=== PATIENT | female | born 1975 | race African-American/Black ===

== ENCOUNTER 2023-02-18 16:31 | Inpatient (IN) | payer MEDICAID ==
[~2023-02-18] VITALS: Ht 172.7 cm; Wt 76.2 kg
[~2023-02-18 16:31] MED LIST: GLIP5TAB22 MT; METF-414 PO
[2023-02-18] MEDS ORDERED: ONDANSETRON 4MG ODT PO ONE (17:00)
[2023-02-18 18:21] LABS: BASOPHILS % 0.2 % (0.0-2.0); EOSINOPHILS % 1.2 % (0.0-5.0); HEMATOCRIT. 36.2 % (36.0-48.0); LYMPHOCYTES % 22.8 % (20.0-50.0); MEAN CORPUSCULAR HEMOGLOBIN 31.7 pg (28.0-32.0); MEAN CORPUSCULAR VOLUME 96.1 fL (81.0-99.0); MEAN PLATELET VOLUME 9.5 fl (7.4-10.4); NEUTROPHILS % 62.8 % (40.0-76.0); PLATELET 157 x1000/uL (130-400); RED BLOOD CELL COUNT 3.77 mill/uL (4.2-5.4); RED CELL DISTRIBUTION WIDTH 14.3 % (11.6-14.6); WHITE BLOOD COUNT 3.5 x1000/uL (4.5-11.0)
[2023-02-18 18:36] LABS: ALANINE AMINOTRANSFERASE < 7 IU/L (10-49); ALBUMIN 3.6 g/dL (3.2-4.8); ASPARTATE AMINOTRANSFERASE 10 IU/L (<34); BILIRUBIN TOTAL 0.4 mg/dL (0.1-1.0); CARBON DIOXIDE 28 mEq/L (21-32); CHLORIDE 106 mEq/L (98-107); GLUCOSE 131 mg/dL (70-105); PHOSPHORUS 4.2 mg/dL (2.5-4.9); POTASSIUM 4.8 mEq/L (3.5-5.1); PROTEIN TOTAL 6.2 g/dL (6.0-8.3); SODIUM 140 mEq/L (136-145); UREA NITROGEN BLOOD 28 mg/dL (9-23)
[2023-02-18 19:25] LABS: CREATININE 5.4 mg/dL (0.6-1.0)
[2023-02-18 20:41] LABS: PROTHROMBIN TIME 10.7 sec (9.6-11.0)
[2023-02-18] MEDS ORDERED: IPRATROPIUM/ALBUTEROL 0.5-3(2.5)MG/3ML NEB HHN PRN (21:00)
[2023-02-18] MEDS ORDERED: GUAIFENESIN 200MG/10ML SUGAR FREE UDC PO PRN (21:00)
[2023-02-18] MEDS ORDERED: NA PHOS,M-B/NA PHOS,DI-BA ENEMA 118ML PR PRN (21:00)
[2023-02-18] MEDS ORDERED: ONDANSETRON HCL 4MG/2ML INJ IV PRN (21:00)
[2023-02-18] MEDS ORDERED: DEXTROSE 50% WATER 50ML SYRINGE IV PRN (21:00)
[2023-02-18] MEDS: INSULIN LISPRO 100 UNITS/ML SUBCUT SCH ×2 (21:00→23:49)
[2023-02-18] MEDS ORDERED: MAGNESIUM/ALUMINUM HYDROXIDE/SIMETHICONE 30ML UDC PO PRN (21:00)
[2023-02-18] MEDS ORDERED: CLONIDINE 0.1MG TABLET PO PRN (21:00)
[2023-02-18] MEDS ORDERED: DOCUSATE SODIUM 100MG CAPSULE PO PRN (21:00)
[2023-02-18] MEDS: BLOOD SUGAR DIAGNOSTIC STRIP TEST SCH (22:30)
[2023-02-18 23:00] VITALS: BP 184/89; PULSE 80; RESP 18; TEMP 96.9
[2023-02-18] MEDS ORDERED: AMLODIPINE 5MG TABLET PO NR (23:45)
[2023-02-19] VITALS (24 sets, daily range): BP systolic 101–171; BP diastolic 52–96; PULSE 68–87; RESP 13–19; TEMP 96.1–98.6
[2023-02-19] MEDS ORDERED: CALCIUM ACETATE 667MG CAPSULE PO ONE (00:15)
[2023-02-19 00:31] LABS: CREATINE KINASE 106 IU/L (34-145)
[2023-02-19 01:08] LABS: TROPONIN I HIGH SENSITIVITY 64 ng/L (3.0-34)
[2023-02-19 01:58] LABS: HCG SCREEN NEGATIVE
[2023-02-19] MEDS: HYDRALAZINE HCL 100MG TABLET PO SCH ×3 (06:06→22:00)
[2023-02-19] MEDS: BLOOD SUGAR DIAGNOSTIC STRIP TEST SCH ×4 (06:10→21:00)
[2023-02-19] MEDS: INSULIN LISPRO 100 UNITS/ML SUBCUT SCH ×4 (06:10→21:00)
[2023-02-19 07:10] LABS: HEMATOCRIT. 31.9 % (36.0-48.0); HEMOGLOBIN. 10.9 g/dL (12.0-16.0); MEAN CORPUSCULAR HEMOGLOBIN 32.4 pg (28.0-32.0); MEAN CORPUSCULAR HGB CONC 34.2 g/dL (31.0-37.0); MEAN CORPUSCULAR VOLUME 94.5 fL (81.0-99.0); MEAN PLATELET VOLUME 9.9 fl (7.4-10.4); PLATELET 142 x1000/uL (130-400); RED BLOOD CELL COUNT 3.37 mill/uL (4.2-5.4); RED CELL DISTRIBUTION WIDTH 14.1 % (11.6-14.6); WHITE BLOOD COUNT 2.8 x1000/uL (4.5-11.0)
[2023-02-19] MEDS ORDERED: CLOP75TA33 PO (07:18)
[2023-02-19] MEDS ORDERED: ASPI-1406 PO (07:18)
[2023-02-19] MEDS ORDERED: DOCU250C14 PO (07:18)
[2023-02-19] MEDS ORDERED: AMLO5TAB88 PO (07:18)
[2023-02-19] MEDS ORDERED: FAMO20TA8 PO (07:18)
[2023-02-19] MEDS ORDERED: CALC667C PO (07:18)
[2023-02-19] MEDS ORDERED: HYDR100T31 PO (07:18)
[2023-02-19 07:22] LABS: DIFFERENTIAL COMMENT 1
[2023-02-19 07:43] LABS: CREATINE KINASE 92 IU/L (34-145)
[2023-02-19 07:44] LABS: ALANINE AMINOTRANSFERASE < 7 IU/L (10-49); ALBUMIN 3.1 g/dL (3.2-4.8); ASPARTATE AMINOTRANSFERASE 10 IU/L (<34); BILIRUBIN TOTAL 0.3 mg/dL (0.1-1.0); CALCIUM 8.3 mg/dL (8.7-10.4); CARBON DIOXIDE 27 mEq/L (21-32); CHLORIDE 106 mEq/L (98-107); CHOLESTEROL 195 mg/dL (<200); GLUCOSE 124 mg/dL (70-105); HDL CHOLESTEROL 57 mg/dL (>65); LDL CHOLESTEROL 121 mg/dL (5-100); POTASSIUM 5.3 mEq/L (3.5-5.1); PROTEIN TOTAL 5.4 g/dL (6.0-8.3); SODIUM 141 mEq/L (136-145); T4 FREE 1.02 ng/dL (0.89-1.76); THYROID STIMULATING HORMONE < 0.10 uIU/mL (0.55-4.78); TRIGLYCERIDE 76 mg/dL (0-150); UREA NITROGEN BLOOD 38 mg/dL (9-23)
[2023-02-19 08:21] LABS: CREATININE 5.6 mg/dL (0.6-1.0)
[2023-02-19 08:40] LABS: TROPONIN I HIGH SENSITIVITY 67 ng/L (3.0-34)
[2023-02-19] MEDS: ONDANSETRON HCL 4MG/2ML INJ IV SCH (09:00)
[2023-02-19] MEDS: ASPIRIN 81MG TABLET PO SCH (09:00)
[2023-02-19] MEDS: CALCIUM ACETATE 667MG CAPSULE PO SCH ×3 (09:00→17:50)
[2023-02-19] MEDS: CLOPIDOGREL 75MG TABLET PO SCH (09:00)
[2023-02-19] MEDS: AMLODIPINE 5MG TABLET PO SCH (09:01)
[2023-02-19] MEDS ORDERED: LIDOCAINE HCL 1% 10 MG/ML 10ML VIAL ONE ×2 (09:26→09:56)
[2023-02-19] MEDS ORDERED: FENTANYL CITRATE/PF 50MCG/ML 2ML VIAL ONE (09:37)
[2023-02-19] MEDS ORDERED: CEFAZOLIN 1000MG PREMIX 50 ML IV ONE (09:37)
[2023-02-19] MEDS ORDERED: CEFAZOLIN 1000MG PREMIX 50 ML IV NR (10:15)
[2023-02-19] MEDS ORDERED: FENTANYL CITRATE/PF 50MCG/ML 2ML VIAL IV ONE (10:15)
[2023-02-19 12:25] LABS: CLARITY URINE CLEAR (CLEAR); COLOR URINE YELLOW (YELLOW); GLUCOSE URINE TRACE (NEGATIVE); KETONES URINE NEGATIVE (NEGATIVE); LEUKOCYTE ESTERASE URINE 1+ (NEGATIVE); NITRITE URINE NEGATIVE (NEGATIVE); OCCULT BLOOD URINE NEGATIVE (NEGATIVE); PROTEIN URINE 4+ (NEGATIVE); SPECIFIC GRAVITY URINE 1.013 (1.005-1.030)
[2023-02-19 12:27] LABS: RBC URINE 0-2 /hpf (0-2); SQUAMOUS EPITHELIAL CELL URINE NONE SEEN /lpf (RARE/1+); YEAST URINE NONE SEEN
[2023-02-19 12:40] LABS: HEPATITIS A AB IGM NEGATIVE (Negative); HEPATITIS B CORE AB IGM NEGATIVE (Negative); HEPATITIS B SURFACE ANTIGEN NEGATIVE (Negative); HEPATITIS C AB NON REACTIVE (Neg) (Negative)
[2023-02-19 12:45] LABS: WBC URINE 0-2 /hpf (0-2)
[2023-02-19 12:46] LABS: BACTERIA URINE 2+
[2023-02-19 14:01] LABS: PLATELET ESTIMATE NORMAL
[2023-02-19 14:06] LABS: *AMPHETAMINES SCREEN URINE NEGATIVE (NEGATIVE); *BARBITURATES SCREEN URINE NEGATIVE (NEGATIVE); *BENZODIAZEPINES SCREEN URINE NEGATIVE (NEGATIVE); *COCAINE SCREEN URINE PRESUMPTIVE POSITIVE (NEGATIVE); CANNABINOID URINE SCREEN NEGATIVE (NEGATIVE); ECSTASY MDMA SCREEN URINE NEGATIVE (NEGATIVE); METHADONE URINE SCREEN Neg (NEGATIVE); OPIATES URINE SCREEN NEGATIVE (NEGATIVE); PHENCYCLIDINE URINE SCREEN NEGATIVE (NEGATIVE)
[2023-02-19] MEDS ORDERED: CEFTRIAXONE 1GM PREMIX 50 ML IV SCH (15:45)
[2023-02-19] MEDS ORDERED: CEFTRIAXONE 1,000 MG in DEXTROSE 5% WATER 50 ML IV SCH (17:00)
[2023-02-19] MEDS ORDERED: ACETAMINOPHEN 650MG/20.3ML UDC PO PRN (18:00)
[2023-02-20] VITALS (12 sets, daily range): BP systolic 110–158; BP diastolic 57–86; PULSE 65–76; RESP 16–18; TEMP 97.1–98; O2SAT 100
[2023-02-20] MEDS: HYDRALAZINE HCL 100MG TABLET PO SCH ×2 (06:00→14:38)
[2023-02-20 07:48] LABS: HEMATOCRIT 31.5 % (36.0-48.0); HEMOGLOBIN 10.7 g/dL (12.0-16.0); MEAN CORPUSCULAR HEMOGLOBIN 32.2 pg (28.0-32.0); MEAN CORPUSCULAR HGB CONC 34.1 g/dL (31.0-37.0); MEAN CORPUSCULAR VOLUME 94.4 fL (81.0-99.0); PLATELET 136 x1000/uL (130-400); RED BLOOD CELL COUNT 3.33 mill/uL (4.2-5.4)
[2023-02-20] MEDS: INSULIN LISPRO 100 UNITS/ML SUBCUT SCH ×2 (07:50→12:07)
[2023-02-20] MEDS: BLOOD SUGAR DIAGNOSTIC STRIP TEST SCH ×2 (08:01→11:59)
[2023-02-20 08:16] LABS: CALCIUM 8.3 mg/dL (8.7-10.4); CREATININE 4.7 mg/dL (0.6-1.0); POTASSIUM 5.2 mEq/L (3.5-5.1)
[2023-02-20] MEDS: CALCIUM ACETATE 667MG CAPSULE PO SCH ×2 (09:32→12:08)
[2023-02-20] MEDS: ONDANSETRON HCL 4MG/2ML INJ IV SCH (09:32)
[2023-02-20] MEDS: ASPIRIN 81MG TABLET PO SCH (09:32)
[2023-02-20] MEDS: AMLODIPINE 5MG TABLET PO SCH (09:33)
[2023-02-20] MEDS: CLOPIDOGREL 75MG TABLET PO SCH (09:33)
== END 2023-02-20 15:15 | disposition home or self-care (01) | DRG 466 ==
LOC: ER 16:31 → 6WST 18:01 → EDBEDREQTM 18:05 → EDBEDREQ 18:05
PROVIDERS: ADMIT Internal Medicine; ATTEND Internal Medicine
PROC: 0JH63XZ Insertion of Tunneled Vascular Access Device into Chest Subcutaneous Tissue and Fascia, Percutaneous Approach (ICD-10-PCS; principal; 2023-02-19)
PROC: 02HV33Z Insertion of Infusion Device into Superior Vena Cava, Percutaneous Approach (ICD-10-PCS; 2023-02-19)
PROC: B5181ZA Fluoroscopy of Superior Vena Cava using Low Osmolar Contrast, Guidance (ICD-10-PCS; 2023-02-19)
PROC: 5A1D70Z Performance of Urinary Filtration, Intermittent, Less than 6 Hours Per Day (ICD-10-PCS; 2023-02-19)
PROC: 5A1D70Z Performance of Urinary Filtration, Intermittent, Less than 6 Hours Per Day (ICD-10-PCS; 2023-02-20)
DX: T82.41XA Breakdown (mechanical) of vascular dialysis catheter, initial encounter (principal); I12.0 Hypertensive chronic kidney disease with stage 5 chronic kidney disease or end stage renal disease; E11.22 Type 2 diabetes mellitus with diabetic chronic kidney disease; E44.1 Mild protein-calorie malnutrition; D72.819 Decreased white blood cell count, unspecified; E05.90 Thyrotoxicosis, unspecified without thyrotoxic crisis or storm; E11.65 Type 2 diabetes mellitus with hyperglycemia; I16.0 Hypertensive urgency; N18.6 End stage renal disease; E87.5 Hyperkalemia; F14.10 Cocaine abuse, uncomplicated; F17.210 Nicotine dependence, cigarettes, uncomplicated; H91.91 Unspecified hearing loss, right ear; Y71.2 Prosthetic and other implants, materials and accessory cardiovascular devices associated with adverse incidents; Y92.89 Other specified places as the place of occurrence of the external cause; Z79.899 Other long term (current) drug therapy; Z99.2 Dependence on renal dialysis; Z86.73 Personal history of transient ischemic attack (TIA), and cerebral infarction without residual deficits; N39.0 Urinary tract infection, site not specified
CPT/HCPCS: 36415; 36581; 77001; 80048; 80053; 80061; 80305; 81003; 82550; 82962; 83036; 83735; 84100; 84439; 84443; 84484; 84703; 85025; 85027; 86705; 86709; 87077; 87340; 87426; 90935; 93005; 99152; 99153; 99285; C1750; C1769; J0690; J0696; J1642; J1815; J2405; J3010; J3490; J7060; Q0162; G0500

== ENCOUNTER 2023-06-10 00:31 | Inpatient (IN) | payer MEDICAID ==
[2023-06-10] VITALS (15 sets, daily range): BP systolic 131–170; BP diastolic 66–87; PULSE 64–78; RESP 16–22; TEMP 96.6–98.2; O2SAT 98
[~2023-06-10] VITALS: Ht 170.2 cm; Wt 77.3 kg
[~2023-06-10 00:31] MED LIST changes: +AMLO5TAB88 PO; +ASPI-1406 PO; +CALC667C PO; +CLOP75TA33 PO; +DOCU250C14 PO; +FAMO20TA8 PO; +HYDR100T31 PO; -METF-414 PO
[2023-06-10] MEDS: ONDANSETRON HCL 4MG/2ML INJ IV STA (01:31)
[2023-06-10] MEDS: MORPHINE SULFATE 4 MG/ML CPJ (NOT FOR IM USE) IV STA (01:31)
[2023-06-10 01:38] LABS: BASOPHILS % 0.7 % (0.0-2.0); EOSINOPHILS % 2.4 % (0.0-5.0); HEMATOCRIT. 28.3 % (36.0-48.0); HEMOGLOBIN. 9.5 g/dL (12.0-16.0); LYMPHOCYTES % 16.8 % (20.0-50.0); MEAN CORPUSCULAR HEMOGLOBIN 32.6 pg (28.0-32.0); MEAN CORPUSCULAR HGB CONC 33.5 g/dL (31.0-37.0); MEAN CORPUSCULAR VOLUME 97.3 fL (81.0-99.0); MEAN PLATELET VOLUME 9.9 fl (7.4-10.4); MONOCYTES % 12.8 % (2.0-8.0); NEUTROPHILS % 67.3 % (40.0-76.0); PLATELET 154 x1000/uL (130-400); RED BLOOD CELL COUNT 2.91 mill/uL (4.2-5.4); RED CELL DISTRIBUTION WIDTH 13.2 % (11.6-14.6); WHITE BLOOD COUNT 2.9 x1000/uL (4.5-11.0)
[2023-06-10] MEDS ORDERED: CLONIDINE 0.2MG TABLET PO PRN (02:21)
[2023-06-10] MEDS: INSULIN LISPRO 100 UNITS/ML SUBCUT SCH (07:40)
[2023-06-10] MEDS ORDERED: DEXTROSE 50% WATER 50ML SYRINGE IV PRN ×2 (07:45→14:30)
[2023-06-10] MEDS ORDERED: ACETAMINOPHEN 650MG/20.3ML UDC PO PRN (07:45)
[2023-06-10] MEDS ORDERED: ONDANSETRON HCL 4MG/2ML INJ IV PRN (07:45)
[2023-06-10] MEDS ORDERED: NALOXONE HCL 0.4MG/ML VIAL IV PRN (08:00)
[2023-06-10] MEDS: BLOOD SUGAR DIAGNOSTIC STRIP TEST SCH (08:49)
[2023-06-10] MEDS: AMLODIPINE 10MG TABLET PO SCH (08:49)
[2023-06-10] MEDS: ASPIRIN 81MG EC TABLET PO SCH (08:50)
[2023-06-10] MEDS: CLOPIDOGREL 75MG TABLET PO SCH (08:50)
[2023-06-10 10:19] LABS: ALANINE AMINOTRANSFERASE 13 IU/L (10-49); ASPARTATE AMINOTRANSFERASE 13 IU/L (<34); BILIRUBIN TOTAL 0.2 mg/dL (0.1-1.0); CALCIUM 8.5 mg/dL (8.7-10.4); CARBON DIOXIDE 26 mEq/L (21-32); CHLORIDE 107 mEq/L (98-107); GLUCOSE 115 mg/dL (70-105); POTASSIUM 5.1 mEq/L (3.5-5.1); SODIUM 139 mEq/L (136-145); UREA NITROGEN BLOOD 67 mg/dL (9-23)
[2023-06-10 10:25] LABS: BASOPHILS % 0.7 % (0.0-2.0); EOSINOPHILS % 3.4 % (0.0-5.0); HEMATOCRIT. 27.6 % (36.0-48.0); HEMOGLOBIN. 9.3 g/dL (12.0-16.0); LYMPHOCYTES % 23.1 % (20.0-50.0); MEAN CORPUSCULAR HEMOGLOBIN 32.5 pg (28.0-32.0); MEAN CORPUSCULAR HGB CONC 33.5 g/dL (31.0-37.0); MEAN CORPUSCULAR VOLUME 96.9 fL (81.0-99.0); MEAN PLATELET VOLUME 10.3 fl (7.4-10.4); MONOCYTES % 11.7 % (2.0-8.0); NEUTROPHILS % 61.1 % (40.0-76.0); PLATELET 149 x1000/uL (130-400); RED BLOOD CELL COUNT 2.85 mill/uL (4.2-5.4); RED CELL DISTRIBUTION WIDTH 13.5 % (11.6-14.6); WHITE BLOOD COUNT 2.5 x1000/uL (4.5-11.0)
[2023-06-10 10:28] LABS: TROPONIN I HIGH SENSITIVITY 113 ng/L (3.0-34)
[2023-06-10 10:52] LABS: CALCIUM 8.1 mg/dL (8.7-10.4); PHOSPHORUS 4.1 mg/dL (2.5-4.9); POTASSIUM 5.2 mEq/L (3.5-5.1)
[2023-06-10] MEDS: HYDROCODONE/ACETAMINOPHEN 5/325MG TABLET PO PRN (11:02)
[2023-06-10 11:31] LABS: CREATININE 8.4 mg/dL (0.6-1.0)
[2023-06-10 11:35] LABS: TROPONIN I HIGH SENSITIVITY 114 ng/L (3.0-34)
[2023-06-10] MEDS ORDERED: MAGNESIUM/ALUMINUM HYDROXIDE/SIMETHICONE 30ML UDC PO PRN (14:30)
[2023-06-10] MEDS: HYDRALAZINE HCL 100MG TABLET PO SCH (14:33)
[2023-06-10] MEDS: EPOETIN ALFA 4000UNITS/ML VIAL SUBCUT SCH (23:31)
[2023-06-11] VITALS (8 sets, daily range): BP systolic 96–166; BP diastolic 59–91; PULSE 70–102; RESP 16–20; TEMP 97.1–98.5
[2023-06-11 06:55] LABS: BASOPHILS % 0.5 % (0.0-2.0); EOSINOPHILS % 2.7 % (0.0-5.0); HEMATOCRIT. 25.8 % (36.0-48.0); HEMOGLOBIN. 8.7 g/dL (12.0-16.0); LYMPHOCYTES % 26.1 % (20.0-50.0); MEAN CORPUSCULAR HEMOGLOBIN 32.3 pg (28.0-32.0); MEAN CORPUSCULAR HGB CONC 33.7 g/dL (31.0-37.0); MEAN CORPUSCULAR VOLUME 96.1 fL (81.0-99.0); MEAN PLATELET VOLUME 10.3 fl (7.4-10.4); MONOCYTES % 14.1 % (2.0-8.0); NEUTROPHILS % 56.6 % (40.0-76.0); PLATELET 129 x1000/uL (130-400); RED BLOOD CELL COUNT 2.68 mill/uL (4.2-5.4); RED CELL DISTRIBUTION WIDTH 13.2 % (11.6-14.6); WHITE BLOOD COUNT 2.7 x1000/uL (4.5-11.0)
[2023-06-11 07:12] LABS: ALANINE AMINOTRANSFERASE 11 IU/L (10-49); ALBUMIN 3.5 g/dL (3.2-4.8); ASPARTATE AMINOTRANSFERASE 11 IU/L (<34); BILIRUBIN TOTAL 0.2 mg/dL (0.1-1.0); CALCIUM 7.8 mg/dL (8.7-10.4); CARBON DIOXIDE 25 mEq/L (21-32); CHLORIDE 105 mEq/L (98-107); GLUCOSE 84 mg/dL (70-105); PHOSPHORUS 3.6 mg/dL (2.5-4.9); POTASSIUM 5.3 mEq/L (3.5-5.1); SODIUM 136 mEq/L (136-145); UREA NITROGEN BLOOD 44 mg/dL (9-23)
[2023-06-11 07:46] LABS: CREATININE 6.2 mg/dL (0.6-1.0)
[2023-06-11 07:47] LABS: BILIRUBIN DIRECT < 0.1 mg/dL (<=3.0)
[2023-06-11 07:50] LABS: TROPONIN I HIGH SENSITIVITY 78 ng/L (3.0-34)
[2023-06-11 18:34] LABS: CLARITY URINE CLEAR (CLEAR); COLOR URINE YELLOW (YELLOW); GLUCOSE URINE TRACE (NEGATIVE); KETONES URINE NEGATIVE (NEGATIVE); LEUKOCYTE ESTERASE URINE TRACE (NEGATIVE); NITRITE URINE NEGATIVE (NEGATIVE); OCCULT BLOOD URINE NEGATIVE (NEGATIVE); PROTEIN URINE 4+ (NEGATIVE); SPECIFIC GRAVITY URINE 1.013 (1.005-1.030); UROBILINOGEN URINE 0.2 E.U./dL (0.2-1.0)
[2023-06-11 21:01] LABS: BACTERIA URINE 1+; RBC URINE 0-2 /hpf (0-2); SQUAMOUS EPITHELIAL CELL URINE 1+ /lpf (RARE/1+); WBC URINE 0-2 /hpf (0-2)
[2023-06-12] VITALS (15 sets, daily range): BP systolic 110–153; BP diastolic 37–74; PULSE 73–99; RESP 15–18; TEMP 97.5–100
[2023-06-12 07:20] LABS: CALCIUM 7.2 mg/dL (8.7-10.4); POTASSIUM 5.3 mEq/L (3.5-5.1)
[2023-06-12 07:25] LABS: CREATININE 6.5 mg/dL (0.6-1.0)
[2023-06-12 07:28] LABS: HEMATOCRIT. 24.7 % (36.0-48.0); HEMOGLOBIN. 8.3 g/dL (12.0-16.0); MEAN CORPUSCULAR HEMOGLOBIN 32.6 pg (28.0-32.0); MEAN CORPUSCULAR HGB CONC 33.6 g/dL (31.0-37.0); MEAN CORPUSCULAR VOLUME 96.9 fL (81.0-99.0); MEAN PLATELET VOLUME 10.9 fl (7.4-10.4); PLATELET 124 x1000/uL (130-400); RED BLOOD CELL COUNT 2.55 mill/uL (4.2-5.4); RED CELL DISTRIBUTION WIDTH 13.3 % (11.6-14.6)
[2023-06-12 07:38] LABS: DIFFERENTIAL COMMENT 1
[2023-06-12 10:28] LABS: PLATELET ESTIMATE SLIGHTLY DECREASED
[2023-06-12 12:39] LABS: HEPATITIS A AB IGM NEGATIVE (Negative); HEPATITIS B CORE AB IGM NEGATIVE (Negative); HEPATITIS B SURFACE ANTIGEN NEGATIVE (Negative); HEPATITIS C AB NON REACTIVE (Neg) (Negative)
[2023-06-12] MEDS: CEFTRIAXONE 1GM/50ML 50 ML IV SCH (16:18)
[2023-06-13 00:28] VITALS: BP 122/57; PULSE 75; RESP 18; TEMP 99.5
[2023-06-13 04:21] VITALS: BP 136/56; PULSE 70; RESP 18; TEMP 99.3
[2023-06-13 07:07] LABS: HEMATOCRIT. 24.2 % (36.0-48.0); HEMOGLOBIN. 8.1 g/dL (12.0-16.0); MEAN CORPUSCULAR HGB CONC 33.4 g/dL (31.0-37.0); MEAN CORPUSCULAR VOLUME 95.9 fL (81.0-99.0); MEAN PLATELET VOLUME 10.6 fl (7.4-10.4); PLATELET 120 x1000/uL (130-400); RED BLOOD CELL COUNT 2.52 mill/uL (4.2-5.4); RED CELL DISTRIBUTION WIDTH 13.1 % (11.6-14.6); WHITE BLOOD COUNT 2.9 x1000/uL (4.5-11.0)
[2023-06-13 07:20] LABS: DIFFERENTIAL COMMENT 1
[2023-06-13 07:35] LABS: CALCIUM 7.4 mg/dL (8.7-10.4)
[2023-06-13 07:37] LABS: CREATININE 5.6 mg/dL (0.6-1.0)
[2023-06-13 08:00] VITALS: BP 153/70; PULSE 75; RESP 18; TEMP 97.7
[2023-06-13 09:50] LABS: PLATELET ESTIMATE NORMAL
[2023-06-13 12:00] VITALS: BP 147/64; PULSE 83; RESP 18; TEMP 99.1
[2023-06-13 16:00] VITALS: BP 141/61; PULSE 85; RESP 18; TEMP 99.5
[2023-06-13 20:00] VITALS: BP 138/59; PULSE 82; RESP 20; TEMP 99.3
[2023-06-14] VITALS (8 sets, daily range): BP systolic 122–175; BP diastolic 55–88; PULSE 70–84; RESP 17–20; TEMP 97.7–99.1
[2023-06-14 05:53] LABS: HEMATOCRIT. 23.5 % (36.0-48.0); HEMOGLOBIN. 7.8 g/dL (12.0-16.0); MEAN CORPUSCULAR HEMOGLOBIN 31.9 pg (28.0-32.0); MEAN CORPUSCULAR HGB CONC 33.3 g/dL (31.0-37.0); MEAN CORPUSCULAR VOLUME 95.9 fL (81.0-99.0); MEAN PLATELET VOLUME 11.1 fl (7.4-10.4); PLATELET 116 x1000/uL (130-400); RED BLOOD CELL COUNT 2.45 mill/uL (4.2-5.4); RED CELL DISTRIBUTION WIDTH 12.9 % (11.6-14.6); WHITE BLOOD COUNT 3.3 x1000/uL (4.5-11.0)
[2023-06-14 06:32] LABS: POTASSIUM 5.5 mEq/L (3.5-5.1)
[2023-06-14 06:46] LABS: CREATININE 6.5 mg/dL (0.6-1.0)
[2023-06-14 06:53] LABS: DIFFERENTIAL COMMENT 1
[2023-06-14] MEDS ORDERED: CEFTRIAXONE 1,000 MG in DEXTROSE 5% WATER 50 ML IV SCH (10:00)
[2023-06-14] MEDS ORDERED: HYDR100T26 PO (12:03)
[2023-06-14] MEDS ORDERED: ASPI-1406 PO (12:03)
[2023-06-14] MEDS ORDERED: AMLO10TA80 PO (12:03)
[2023-06-14] MEDS ORDERED: ATOR20TA MT (12:03)
[2023-06-14] MEDS ORDERED: METR-167 MT (12:09)
[2023-06-14 13:28] LABS: PLATELET ESTIMATE SLIGHTLY DECREASED
[2023-06-14] MEDS: AZITHROMYCIN 500 MG TABLET PO NR (13:30)
[2023-06-14] MEDS ORDERED: CEFTRIAXONE 1GM/50ML 50 ML IV SCH (15:00)
[2023-06-15 04:10] LABS: CHLAMYDIA TRACHOMATIS NAA Negative (Negative); NEISSERIA GONORRHOEAE NAA Negative (Negative)
== END 2023-06-14 16:54 | disposition home or self-care (01) | DRG 425 ==
LOC: ER 00:31 → 8WST 01:41
PROVIDERS: ADMIT Internal Medicine; ATTEND Internal Medicine
PROC: 5A1D70Z Performance of Urinary Filtration, Intermittent, Less than 6 Hours Per Day (ICD-10-PCS; principal; 2023-06-10)
PROC: 5A1D70Z Performance of Urinary Filtration, Intermittent, Less than 6 Hours Per Day (ICD-10-PCS; 2023-06-12)
PROC: 5A1D70Z Performance of Urinary Filtration, Intermittent, Less than 6 Hours Per Day (ICD-10-PCS; 2023-06-14)
DX: E87.70 Fluid overload, unspecified (principal); I12.0 Hypertensive chronic kidney disease with stage 5 chronic kidney disease or end stage renal disease; E44.1 Mild protein-calorie malnutrition; N18.6 End stage renal disease; D63.1 Anemia in chronic kidney disease; E11.22 Type 2 diabetes mellitus with diabetic chronic kidney disease; E78.5 Hyperlipidemia, unspecified; F14.10 Cocaine abuse, uncomplicated; E87.5 Hyperkalemia; E05.90 Thyrotoxicosis, unspecified without thyrotoxic crisis or storm; Z86.73 Personal history of transient ischemic attack (TIA), and cerebral infarction without residual deficits; Z91.158 Patient's noncompliance with renal dialysis for other reason; Z79.84 Long term (current) use of oral hypoglycemic drugs; Z99.2 Dependence on renal dialysis; Z68.26 Body mass index [BMI] 26.0-26.9, adult
CPT/HCPCS: 36415; 71045; 80048; 80053; 80061; 80076; 81003; 82962; 83036; 83735; 84100; 84145; 84484; 85025; 86705; 86709; 87077; 87340; 87491; 87591; 90935; 93005; 93970; 99285; J0696; J0885; J1815; J2270; J2405; J7060

== ENCOUNTER 2023-07-14 07:50 | Emergency (ER) | payer MEDICAID ==
[~2023-07-14] VITALS: Ht 172.7 cm; Wt 73.0 kg
[~2023-07-14 07:50] MED LIST changes: +AMLO10TA80 PO; +ATOR20TA MT; +CIPR250S3 MT; +HYDR100T26 PO; +METR-167 MT; +OFLO5DRO4 RIGHT EAR
[2023-07-14 07:52] VITALS: O2SAT 99
[2023-07-14 08:18] LABS: BASOPHILS % 1.2 % (0.0-2.0); EOSINOPHILS % 3.6 % (0.0-5.0); HEMATOCRIT. 28.1 % (36.0-48.0); HEMOGLOBIN. 9.4 g/dL (12.0-16.0); LYMPHOCYTES % 29.7 % (20.0-50.0); MEAN CORPUSCULAR HEMOGLOBIN 32.6 pg (28.0-32.0); MEAN CORPUSCULAR HGB CONC 33.6 g/dL (31.0-37.0); MEAN CORPUSCULAR VOLUME 97.2 fL (81.0-99.0); MEAN PLATELET VOLUME 9.9 fl (7.4-10.4); MONOCYTES % 12.7 % (2.0-8.0); NEUTROPHILS % 52.8 % (40.0-76.0); PLATELET 146 x1000/uL (130-400); RED BLOOD CELL COUNT 2.89 mill/uL (4.2-5.4); RED CELL DISTRIBUTION WIDTH 12.8 % (11.6-14.6)
[2023-07-14 08:42] LABS: ALANINE AMINOTRANSFERASE 11 IU/L (10-49); ALBUMIN 3.8 g/dL (3.2-4.8); ASPARTATE AMINOTRANSFERASE 21 IU/L (<34); BILIRUBIN TOTAL 0.2 mg/dL (0.1-1.0); CALCIUM 7.7 mg/dL (8.7-10.4); CARBON DIOXIDE 21 mEq/L (21-32); CHLORIDE 108 mEq/L (98-107); GLUCOSE 101 mg/dL (70-105); POTASSIUM 4.7 mEq/L (3.5-5.1); PROTEIN TOTAL 6.7 g/dL (6.0-8.3); SODIUM 140 mEq/L (136-145); UREA NITROGEN BLOOD 61 mg/dL (9-23)
[2023-07-14 08:59] LABS: CREATININE 9.8 mg/dL (0.6-1.0)
[2023-07-14] MEDS ORDERED: PIPERACILLIN/TAZO 3.375G/50ML 50 ML IV STA (09:15)
[2023-07-14] MEDS: ACETAMINOPHEN 325MG TABLET PO ONE (10:42)
[2023-07-14] MEDS: VANCOMYCIN 1G PREMIX 200 ML IV SCH (10:42)
[2023-07-14] MEDS: PIPERACILLIN/TAZO 3.375G/50ML 50 ML IV ONE (13:18)
[2023-07-14] MEDS ORDERED: AMLODIPINE 10MG TABLET PO ONE (14:45)
[2023-07-14] MEDS: AMLODIPINE 5MG TABLET PO NR (15:12)
[2023-07-14] MEDS ORDERED: CLIN-194 MT (15:51)
[2023-07-14] MEDS ORDERED: AMOX1TAB16 MT (15:51)
[2023-07-14] MEDS ORDERED: HYDR-4001 MT (16:03)
[2023-07-14] MEDS: MORPHINE SULFATE 2 MG/ML CPJ (NOT FOR IM USE) IV ONE (16:04)
[2023-07-14 16:58] VITALS: BP 165/87; PULSE 76; RESP 15; TEMP 98.8
[2023-07-14] MEDS ORDERED: HYDRALAZINE HCL 100MG TABLET PO SCH (22:00)
== END 2023-07-14 17:02 | disposition home or self-care (01) ==
LOC: ER 07:50
DX: H70.91 Unspecified mastoiditis, right ear (principal); I12.0 Hypertensive chronic kidney disease with stage 5 chronic kidney disease or end stage renal disease; E11.22 Type 2 diabetes mellitus with diabetic chronic kidney disease; N18.6 End stage renal disease; F14.10 Cocaine abuse, uncomplicated; Z79.899 Other long term (current) drug therapy; Z86.73 Personal history of transient ischemic attack (TIA), and cerebral infarction without residual deficits
CPT/HCPCS: 99285; 96365; 96366; 70480; 96375; 80053; 85025; 36415; 96368; J2543; J3370; J2270

== ENCOUNTER 2023-10-14 05:37 | Inpatient (IN) | payer MEDICAID ==
[~2023-10-14] VITALS: Ht 172.7 cm; Wt 79.9 kg
[2023-10-14] VITALS (7 sets, daily range): BP systolic 144–178; BP diastolic 67–104; PULSE 76–85; RESP 16–25; TEMP 97.6–98.2
[~2023-10-14 05:37] MED LIST changes: +AMOX1TAB16 MT; +CLIN-194 MT; +HYDR-4001 MT
[2023-10-14 06:07] LABS: BASOPHILS % 0.9 % (0.0-2.0); HEMATOCRIT. 26.7 % (36.0-48.0); HEMOGLOBIN. 9.4 g/dL (12.0-16.0); LYMPHOCYTES % 21.2 % (20.0-50.0); MEAN CORPUSCULAR HEMOGLOBIN 33.7 pg (28.0-32.0); MEAN CORPUSCULAR HGB CONC 35.4 g/dL (31.0-37.0); MEAN CORPUSCULAR VOLUME 95.4 fL (81.0-99.0); MEAN PLATELET VOLUME 9.5 fl (7.4-10.4); MONOCYTES % 11.4 % (2.0-8.0); NEUTROPHILS % 65.5 % (40.0-76.0); PLATELET 142 x1000/uL (130-400); RED BLOOD CELL COUNT 2.79 mill/uL (4.2-5.4); RED CELL DISTRIBUTION WIDTH 14.9 % (11.6-14.6); WHITE BLOOD COUNT 3.2 x1000/uL (4.5-11.0)
[2023-10-14] MEDS: FUROSEMIDE 40MG/4ML VIAL IV ONE (06:09)
[2023-10-14 06:19] LABS: CHLORIDE 107 mEq/L (98-107); SODIUM 143 mEq/L (136-145)
[2023-10-14 06:20] LABS: CALCIUM 7.5 mg/dL (8.7-10.4); CARBON DIOXIDE 23 mEq/L (21-32)
[2023-10-14 06:25] LABS: GLUCOSE 89 mg/dL (70-105)
[2023-10-14 06:32] LABS: POTASSIUM 6.5 mEq/L (3.5-5.1)
[2023-10-14 06:33] LABS: TROPONIN I HIGH SENSITIVITY 158 ng/L (3.0-34); UREA NITROGEN BLOOD 128 mg/dL (9-23)
[2023-10-14 06:34] LABS: CREATININE 14.3 mg/dL (0.6-1.0)
[2023-10-14] MEDS: ACETAMINOPHEN 500MG TABLET PO NR (06:35)
[2023-10-14] MEDS: LABETALOL 5MG/ML 4ML INJ IV NR (06:35)
[2023-10-14] MEDS: CALCIUM CHLORIDE 1GM/10ML SYR IV ONE (06:46)
[2023-10-14] MEDS: DEXTROSE 50% WATER 50ML SYRINGE IV ONE (06:47)
[2023-10-14] MEDS: SODIUM BICARBONATE 8.4% 50MEQ/50ML SYR IV ONE (06:47)
[2023-10-14] MEDS: SODIUM POLYSTYRENE SULFONATE 15 G/60 ML BOT PO ONE (06:47)
[2023-10-14] MEDS: INSULIN REGULAR (HUMULIN R) 1000UNITS/10ML VIAL IV ONE (06:48)
[2023-10-14] MEDS: FUROSEMIDE 40MG/4ML VIAL IV NR (07:05)
[2023-10-14] MEDS: FUROSEMIDE 100MG/10ML VIAL IV STA (07:06)
[2023-10-14] MEDS ORDERED: NITROGLYCERIN 50MG PREMIX 250 ML IV PRN (07:15)
[2023-10-14] MEDS ORDERED: NITROGLYCERIN 50MG PREMIX 250 ML IV SCH (07:15)
[2023-10-14] MEDS: NITROGLYCERIN 50MG PREMIX 250 ML IV ONE (07:50)
[2023-10-14] MEDS: ALBUTEROL (0.083%) 2.5MG/3ML NEB HHN ONE (08:26)
[2023-10-14 09:22] LABS: TROPONIN I HIGH SENSITIVITY 136 ng/L (3.0-34)
[2023-10-14] MEDS: NIFEDIPINE XL 60MG TAB PO SCH (09:44)
[2023-10-14 10:19] LABS: BG BASE EXCESS -3.8 mmol/L (-2.0-2.0); BG CARBOXYHEMOGLOBIN 0.1 % (0.5-1.5); BG DEOXYHEMOGLOBIN 0.6 % (0.0-5.0); BG FRACTION INSPIRED OXYGEN 100; BG HCO3 ACT 21.8 mmol/L (22.0-26.0); BG METHEMOGLOBIN 0.1 % (0.0-1.5); BG OXYGEN SATURATION 99.4 % (92.0-98.5); BG OXYHEMOGLOBIN 99.2 % (94.0-97.0); BG PCO2 42.1 mmHg (35.0-45.0); BG PH 7.333 (7.350-7.450); BG PO2 266.5 mmHg (75.0-100.0); BG SAMPLE SITE RIGHT RADIAL; BG TOTAL HEMOGLOBIN 9.6 g/dL (12.0-18.0); BG VENT MODE MASK - NRB
[2023-10-14] MEDS ORDERED: ONDANSETRON HCL 4MG/2ML INJ IV PRN (10:30)
[2023-10-14 11:03] LABS: HEPATITIS B SURFACE ANTIGEN NEGATIVE (Negative)
[2023-10-14 11:23] LABS: HEPATITIS A AB IGM NEGATIVE (Negative)
[2023-10-14 11:24] LABS: HEPATITIS B CORE AB IGM NEGATIVE (Negative); HEPATITIS C AB NON REACTIVE (Neg) (Negative)
[2023-10-14] MEDS: HYDRALAZINE HCL 100MG TABLET PO NR (12:14)
[2023-10-14] MEDS: ENOXAPARIN 30MG/0.3ML SYR SUBCUT SCH (20:23)
[2023-10-14] MEDS: HYDRALAZINE HCL 100MG TABLET PO SCH (20:24)
[2023-10-14] MEDS: ACETAMINOPHEN 325MG TABLET PO PRN (20:31)
[2023-10-14] MEDS ORDERED: NALOXONE HCL 0.4MG/ML VIAL IV PRN (21:45)
[2023-10-14] MEDS: HYDROCODONE/ACETAMINOPHEN 5/325MG TABLET PO PRN (22:39)
[2023-10-15] VITALS (16 sets, daily range): BP systolic 136–160; BP diastolic 66–90; PULSE 66–80; RESP 17–22; TEMP 97.8–98.9; O2SAT 95
[2023-10-15 05:10] LABS: BASOPHILS % 0.7 % (0.0-2.0); EOSINOPHILS % 1.3 % (0.0-5.0); HEMATOCRIT. 25.4 % (36.0-48.0); HEMOGLOBIN. 8.4 g/dL (12.0-16.0); LYMPHOCYTES % 18.5 % (20.0-50.0); MEAN CORPUSCULAR HEMOGLOBIN 31.7 pg (28.0-32.0); MEAN CORPUSCULAR VOLUME 96.2 fL (81.0-99.0); MEAN PLATELET VOLUME 9.5 fl (7.4-10.4); MONOCYTES % 14.7 % (2.0-8.0); NEUTROPHILS % 64.8 % (40.0-76.0); PLATELET 144 x1000/uL (130-400); RED BLOOD CELL COUNT 2.64 mill/uL (4.2-5.4); RED CELL DISTRIBUTION WIDTH 14.6 % (11.6-14.6); WHITE BLOOD COUNT 2.6 x1000/uL (4.5-11.0)
[2023-10-15 05:18] LABS: POTASSIUM 5.4 mEq/L (3.5-5.1)
[2023-10-15 05:19] LABS: CALCIUM 6.9 mg/dL (8.7-10.4)
[2023-10-15 05:49] LABS: CREATININE 10.8 mg/dL (0.6-1.0)
[2023-10-15] MEDS ORDERED: HYDR100T26 PO (10:35)
[2023-10-15] MEDS ORDERED: NIFE-32 MT (10:35)
[2023-10-15] MEDS: GUAIFENESIN 600MG ER TABLET PO SCH (12:51)
[2023-10-15] MEDS: CALCIUM ACETATE 667MG CAPSULE PO SCH (12:51)
[2023-10-15] MEDS: HYDROCODONE/ACETAMINOPHEN 5/325MG TABLET PO PRN (12:51)
[2023-10-15] MEDS ORDERED: SODIUM POLYSTYRENE SULFONATE 15 G/60 ML BOT PO NR (13:30)
[2023-10-15] MEDS: SODIUM ZIRCONIUM CYCLOSILICATE 10GM/PACKET PO NR (14:07)
[2023-10-15] MEDS: IPRATROPIUM/ALBUTEROL 0.5-3(2.5)MG/3ML NEB HHN SCH (14:58)
[2023-10-15] MEDS: BUDESONIDE 0.5MG/2ML NEB HHN SCH (14:59)
[2023-10-15 17:37] LABS: POTASSIUM 3.5 mEq/L (3.5-5.1)
[2023-10-16] VITALS (11 sets, daily range): BP systolic 117–146; BP diastolic 60–72; PULSE 68–90; RESP 16–20; TEMP 97.5–98.4; O2SAT 96
[2023-10-17] VITALS (7 sets, daily range): BP systolic 122–161; BP diastolic 58–80; PULSE 75–93; RESP 18–19; TEMP 96.5–98.8; O2SAT 96
[2023-10-17 08:26] LABS: HEMOGLOBIN. 7.6 g/dL (12.0-16.0); MEAN CORPUSCULAR HEMOGLOBIN 31.5 pg (28.0-32.0); MEAN CORPUSCULAR VOLUME 95.5 fL (81.0-99.0); MEAN PLATELET VOLUME 10.1 fl (7.4-10.4); PLATELET 131 x1000/uL (130-400); RED BLOOD CELL COUNT 2.41 mill/uL (4.2-5.4); RED CELL DISTRIBUTION WIDTH 14.7 % (11.6-14.6); WHITE BLOOD COUNT 2.6 x1000/uL (4.5-11.0)
[2023-10-17 08:28] LABS: CALCIUM 7.2 mg/dL (8.7-10.4); DIFFERENTIAL COMMENT 1; POTASSIUM 5.1 mEq/L (3.5-5.1)
[2023-10-17 08:39] LABS: CREATININE 9.7 mg/dL (0.6-1.0)
[2023-10-17 15:41] LABS: PLATELET ESTIMATE NORMAL
[2023-10-18] VITALS (16 sets, daily range): BP systolic 130–174; BP diastolic 57–90; PULSE 69–92; RESP 16–21; TEMP 97.6–98.7; O2SAT 96–97
[2023-10-18] MEDS: HYDROCODONE/ACETAMINOPHEN 10/325MG TABLET PO PRN (00:41)
[2023-10-18 04:48] LABS: CALCIUM 7.5 mg/dL (8.7-10.4)
[2023-10-18 05:06] LABS: CREATININE 10.9 mg/dL (0.6-1.0)
[2023-10-18 05:12] LABS: POTASSIUM 6.4 mEq/L (3.5-5.1)
[2023-10-18] MEDS: DEXTROSE 50% WATER 50ML SYRINGE IV NR (06:37)
[2023-10-18] MEDS: SODIUM POLYSTYRENE SULFONATE 15 G/60 ML BOT PO NR (06:37)
[2023-10-18] MEDS: INSULIN REGULAR (HUMULIN R) 1000UNITS/10ML VIAL IV NR (06:45)
[2023-10-18 16:45] LABS: POTASSIUM 4.1 mEq/L (3.5-5.1)
[2023-10-18] MEDS ORDERED: HYDRALAZINE 20MG/ML VIAL IV PRN (16:45)
[2023-10-18 16:46] LABS: CALCIUM 7.9 mg/dL (8.7-10.4)
[2023-10-18] MEDS: MORPHINE SULFATE 2 MG/ML INJ (NOT FOR IM USE) IV PRN (16:52)
[2023-10-18 17:00] LABS: CREATININE 7.5 mg/dL (0.6-1.0)
[2023-10-18 17:34] LABS: HEMATOCRIT. 23.2 % (36.0-48.0); HEMOGLOBIN. 7.8 g/dL (12.0-16.0); MEAN CORPUSCULAR HEMOGLOBIN 32.2 pg (28.0-32.0); MEAN CORPUSCULAR HGB CONC 33.5 g/dL (31.0-37.0); MEAN CORPUSCULAR VOLUME 96.2 fL (81.0-99.0); MEAN PLATELET VOLUME 9.9 fl (7.4-10.4); PLATELET 130 x1000/uL (130-400); RED BLOOD CELL COUNT 2.41 mill/uL (4.2-5.4); RED CELL DISTRIBUTION WIDTH 14.2 % (11.6-14.6); WHITE BLOOD COUNT 4.9 x1000/uL (4.5-11.0)
[2023-10-18 17:37] LABS: DIFFERENTIAL COMMENT 1
[2023-10-18 17:39] LABS: TRIGLYCERIDE 108 mg/dL (0-150)
[2023-10-18 17:40] LABS: LDL CHOLESTEROL 98 mg/dL (5-100)
[2023-10-18 17:41] LABS: CHOLESTEROL 161 mg/dL (<200); CREATINE KINASE 462 IU/L (34-145); CREATINE KINASE MB FRACTION 3.9 ng/mL (0.5-3.6); HDL CHOLESTEROL 45 mg/dL (>65); PHOSPHORUS 4.6 mg/dL (2.5-4.9)
[2023-10-18 17:45] LABS: T4 FREE 0.88 ng/dL (0.89-1.76)
[2023-10-18 17:46] LABS: THYROID STIMULATING HORMONE 0.98 uIU/mL (0.55-4.78)
[2023-10-18 18:55] LABS: PROTHROMBIN TIME 11.1 sec (9.6-11.0)
[2023-10-18] MEDS: HYDRALAZINE 10 MG in SODIUM CHLORIDE 0.9% 49.5 ML IV PRN (19:03)
[2023-10-18 19:39] LABS: TROPONIN I HIGH SENSITIVITY 78 ng/L (3.0-34)
[2023-10-18 20:18] LABS: PLATELET ESTIMATE NORMAL
[2023-10-18] MEDS: MAGNESIUM 2 G PREMIX 50 ML IV NR (22:12)
[2023-10-19] VITALS (7 sets, daily range): BP systolic 133–160; BP diastolic 53–79; PULSE 78–92; RESP 16–20; TEMP 97.3–101.1; O2SAT 96
[2023-10-19 07:27] LABS: CALCIUM 8.2 mg/dL (8.7-10.4)
[2023-10-19 07:33] LABS: HEMATOCRIT. 24.8 % (36.0-48.0); HEMOGLOBIN. 8.1 g/dL (12.0-16.0); MEAN CORPUSCULAR HEMOGLOBIN 31.4 pg (28.0-32.0); MEAN CORPUSCULAR HGB CONC 32.6 g/dL (31.0-37.0); MEAN CORPUSCULAR VOLUME 96.3 fL (81.0-99.0); MEAN PLATELET VOLUME 10.5 fl (7.4-10.4); PLATELET 124 x1000/uL (130-400); RED BLOOD CELL COUNT 2.57 mill/uL (4.2-5.4); RED CELL DISTRIBUTION WIDTH 14.5 % (11.6-14.6); WHITE BLOOD COUNT 2.9 x1000/uL (4.5-11.0)
[2023-10-19 07:34] LABS: DIFFERENTIAL COMMENT 1
[2023-10-19 08:44] LABS: CREATININE 8.7 mg/dL (0.6-1.0)
[2023-10-19 21:25] LABS: PLATELET ESTIMATE SLIGHTLY DECREASED
[2023-10-19] MEDS: HYDROCODONE/ACETAMINOPHEN 5/325MG TABLET PO PRN (22:53)
[2023-10-20] VITALS (15 sets, daily range): BP systolic 126–183; BP diastolic 58–96; PULSE 70–88; RESP 16–20; TEMP 97.5–98.3
[2023-10-20 06:57] LABS: POTASSIUM 5.4 mEq/L (3.5-5.1)
[2023-10-20 07:03] LABS: CREATININE 10.1 mg/dL (0.6-1.0)
[2023-10-20 08:16] LABS: HEMATOCRIT. 23.5 % (36.0-48.0); HEMOGLOBIN. 7.8 g/dL (12.0-16.0); MEAN CORPUSCULAR HEMOGLOBIN 31.5 pg (28.0-32.0); MEAN CORPUSCULAR HGB CONC 33.1 g/dL (31.0-37.0); MEAN CORPUSCULAR VOLUME 95.3 fL (81.0-99.0); MEAN PLATELET VOLUME 10.3 fl (7.4-10.4); PLATELET 124 x1000/uL (130-400); RED BLOOD CELL COUNT 2.46 mill/uL (4.2-5.4); RED CELL DISTRIBUTION WIDTH 14.3 % (11.6-14.6)
[2023-10-20 08:53] LABS: DIFFERENTIAL COMMENT 1
[2023-10-20] MEDS: LABETALOL HCL 200MG TABLET PO SCH (12:00)
[2023-10-20 18:30] LABS: NUCLEATED RED BLOOD CELLS 4 /100 WBC
[2023-10-20 18:34] LABS: PLATELET ESTIMATE SLIGHTLY DECREASED
[2023-10-21] VITALS: BP 175/87; PULSE 73; RESP 20; TEMP 98.2
[2023-10-21 04:00] VITALS: BP 159/80; PULSE 75; RESP 20; TEMP 97.2
[2023-10-21 08:00] VITALS: BP_SYST 120; BP_SYST 151; BP_DIAS 66; BP_DIAS 73; PULSE 70; PULSE 73; PULSE 74; RESP 19; RESP 20; TEMP 98; TEMP 98.4
[2023-10-21] MEDS ORDERED: DIATR MEGLU/DIATRIZOATE SOLN 30ML PO NR (10:45)
[2023-10-21 11:50] LABS: HEMOGLOBIN. 7.6 g/dL (12.0-16.0); MEAN CORPUSCULAR HGB CONC 34.4 g/dL (31.0-37.0); MEAN CORPUSCULAR VOLUME 95.8 fL (81.0-99.0); MEAN PLATELET VOLUME 9.7 fl (7.4-10.4); PLATELET 119 x1000/uL (130-400); RED CELL DISTRIBUTION WIDTH 14.2 % (11.6-14.6)
[2023-10-21 11:57] LABS: DIFFERENTIAL COMMENT 1
[2023-10-21 11:59] LABS: WHITE BLOOD COUNT 1.7 x1000/uL (4.5-11.0)
[2023-10-21 12:00] VITALS: BP 146/64; PULSE 68; RESP 18; TEMP 98.1
[2023-10-21 12:03] LABS: POTASSIUM 4.7 mEq/L (3.5-5.1)
[2023-10-21 12:48] LABS: CREATININE 8.9 mg/dL (0.6-1.0)
[2023-10-21 16:00] VITALS: BP 146/64; PULSE 68; RESP 18; TEMP 98.1
[2023-10-21 16:29] LABS: PLATELET ESTIMATE DECREASED
[2023-10-21 20:00] VITALS: BP 157/68; PULSE 72; RESP 18; TEMP 98
[2023-10-21] MEDS: LABETALOL HCL 200MG TABLET PO SCH (20:52)
[2023-10-22] VITALS (8 sets, daily range): BP systolic 130–180; BP diastolic 66–87; PULSE 68–87; RESP 17–18; TEMP 97.4–99.3
[2023-10-22 05:27] LABS: POTASSIUM 5.9 mEq/L (3.5-5.1)
[2023-10-22 05:28] LABS: CALCIUM 8.1 mg/dL (8.7-10.4)
[2023-10-22 05:37] LABS: CREATININE 9.5 mg/dL (0.6-1.0)
[2023-10-22 06:34] LABS: HEMATOCRIT. 23.4 % (36.0-48.0); HEMOGLOBIN. 7.8 g/dL (12.0-16.0); MEAN PLATELET VOLUME 10.6 fl (7.4-10.4); RED BLOOD CELL COUNT 2.47 mill/uL (4.2-5.4)
[2023-10-22 06:55] LABS: MEAN CORPUSCULAR HEMOGLOBIN 31.5 pg (28.0-32.0); MEAN CORPUSCULAR HGB CONC 33.2 g/dL (31.0-37.0); MEAN CORPUSCULAR VOLUME 94.9 fL (81.0-99.0); PLATELET 128 x1000/uL (130-400); RED CELL DISTRIBUTION WIDTH 13.9 % (11.6-14.6)
[2023-10-22 06:57] LABS: DIFFERENTIAL COMMENT 1
[2023-10-22] MEDS ORDERED: NALOXONE HCL 0.4MG/ML VIAL IV PRN (17:15)
[2023-10-22] MEDS ORDERED: FILGRASTIM-TBO 300 MCG/0.5 ML SYRINGE SQ SCH (21:00)
[2023-10-22 23:40] LABS: PLATELET ESTIMATE DECREASED
== END 2023-10-22 19:26 | disposition left against medical advice (07) | DRG 425 ==
LOC: ER 05:37 → 5EST 06:34 → EDBEDREQSVC 07:43 → EDBEDREQ 07:43 → EDBEDREQTM 07:43 → 6EST 10-15 18:30
PROVIDERS: ADMIT Internal Medicine; ATTEND Internal Medicine
PROC: 5A1D70Z Performance of Urinary Filtration, Intermittent, Less than 6 Hours Per Day (ICD-10-PCS; principal; 2023-10-14)
PROC: 5A1D70Z Performance of Urinary Filtration, Intermittent, Less than 6 Hours Per Day (ICD-10-PCS; 2023-10-15)
PROC: 5A1D70Z Performance of Urinary Filtration, Intermittent, Less than 6 Hours Per Day (ICD-10-PCS; 2023-10-18)
PROC: 5A1D70Z Performance of Urinary Filtration, Intermittent, Less than 6 Hours Per Day (ICD-10-PCS; 2023-10-20)
PROC: 5A1D70Z Performance of Urinary Filtration, Intermittent, Less than 6 Hours Per Day (ICD-10-PCS; 2023-10-22)
DX: E87.70 Fluid overload, unspecified (principal); J96.01 Acute respiratory failure with hypoxia; I13.2 Hypertensive heart and chronic kidney disease with heart failure and with stage 5 chronic kidney disease, or end stage renal disease; N18.6 End stage renal disease; E11.22 Type 2 diabetes mellitus with diabetic chronic kidney disease; D72.819 Decreased white blood cell count, unspecified; I50.32 Chronic diastolic (congestive) heart failure; E05.90 Thyrotoxicosis, unspecified without thyrotoxic crisis or storm; E87.5 Hyperkalemia; Z20.822 Contact with and (suspected) exposure to COVID-19; I16.0 Hypertensive urgency; Z53.29 Procedure and treatment not carried out because of patient's decision for other reasons; Z99.2 Dependence on renal dialysis; F14.90 Cocaine use, unspecified, uncomplicated; Z91.199 Patient's noncompliance with other medical treatment and regimen due to unspecified reason; Z79.84 Long term (current) use of oral hypoglycemic drugs; Z82.49 Family history of ischemic heart disease and other diseases of the circulatory system; Z86.73 Personal history of transient ischemic attack (TIA), and cerebral infarction without residual deficits; Z91.158 Patient's noncompliance with renal dialysis for other reason
CPT/HCPCS: 36415; 36600; 71045; 74176; 80048; 80061; 82375; 82550; 82553; 82805; 83735; 83880; 84100; 84132; 84439; 84443; 84480; 84484; 85025; 86705; 86709; 87340; 87426; 90935; 93005; 94640; 99291; J0360; J1442; J1650; J1815; J1940; J2270; J3475; J3490; J7626; Q9963

== ENCOUNTER 2023-11-23 04:38 | Inpatient (IN) | payer MEDICAID ==
[2023-11-23] VITALS (10 sets, daily range): BP systolic 121–132; BP diastolic 65–74; PULSE 62–72; RESP 14–20; TEMP 36.6696; O2SAT 98
[~2023-11-23] VITALS: Ht 175.3 cm; Wt 79.8 kg
[~2023-11-23 04:38] MED LIST changes: -AMLO5TAB88 PO; -CIPR250S3 MT; -CLIN-194 MT; +HYDR100T11 PO; -HYDR100T26 PO; -HYDR100T31 PO; -METR-167 MT; -OFLO5DRO4 RIGHT EAR
[2023-11-23 06:23] LABS: PARTIAL THROMBOPLASTIN TIME 27.1 sec (23.4-31.0); PROTHROMBIN TIME 11.3 sec (9.6-11.0)
[2023-11-23 06:29] LABS: CHLORIDE 104 mEq/L (98-107); POTASSIUM 5.5 mEq/L (3.5-5.1); SODIUM 137 mEq/L (136-145)
[2023-11-23 06:30] LABS: CALCIUM 8.6 mg/dL (8.7-10.4); CARBON DIOXIDE 23 mEq/L (21-32)
[2023-11-23 06:35] LABS: GLUCOSE 66 mg/dL (70-105)
[2023-11-23 06:36] LABS: UREA NITROGEN BLOOD 67 mg/dL (9-23)
[2023-11-23 06:37] LABS: ALANINE AMINOTRANSFERASE 10 IU/L (10-49); ASPARTATE AMINOTRANSFERASE 20 IU/L (<34)
[2023-11-23 06:38] LABS: BILIRUBIN TOTAL 0.2 mg/dL (0.1-1.0); PROTEIN TOTAL 6.4 g/dL (6.0-8.3)
[2023-11-23 06:44] LABS: HEMATOCRIT. 25.4 % (36.0-48.0); HEMOGLOBIN. 8.5 g/dL (12.0-16.0); MEAN CORPUSCULAR HEMOGLOBIN 31.6 pg (28.0-32.0); MEAN CORPUSCULAR HGB CONC 33.2 g/dL (31.0-37.0); MEAN CORPUSCULAR VOLUME 95.1 fL (81.0-99.0); PLATELET 133 x1000/uL (130-400); RED BLOOD CELL COUNT 2.67 mill/uL (4.2-5.4); RED CELL DISTRIBUTION WIDTH 14.9 % (11.6-14.6); WHITE BLOOD COUNT 3.3 x1000/uL (4.5-11.0)
[2023-11-23 06:46] LABS: HCG SCREEN NEGATIVE
[2023-11-23 06:49] LABS: DIFFERENTIAL COMMENT 1
[2023-11-23 06:55] LABS: BILIRUBIN DIRECT < 0.1 mg/dL (<=3.0)
[2023-11-23 06:56] LABS: ETHANOL BLOOD < 10 mg/dL (<10)
[2023-11-23 06:57] LABS: CREATININE 10.3 mg/dL (0.6-1.0); TROPONIN I HIGH SENSITIVITY 128 ng/L (3.0-34)
[2023-11-23] MEDS: INSULIN REGULAR (HUMULIN R) 1000UNITS/10ML VIAL IV ONE (07:45)
[2023-11-23] MEDS: LABETALOL 5MG/ML 4ML INJ IV ONE (08:01)
[2023-11-23] MEDS: CALCIUM CHLORIDE 1GM/10ML SYR IV ONE (08:16)
[2023-11-23] MEDS: SODIUM POLYSTYRENE SULFONATE 15 G/60 ML BOT PO ONE (08:16)
[2023-11-23] MEDS: DEXTROSE 50% WATER 50ML SYRINGE IV ONE (08:16)
[2023-11-23] MEDS: SODIUM BICARBONATE 8.4% 50MEQ/50ML SYR IV ONE (08:16)
[2023-11-23] MEDS: ACETAMINOPHEN 325MG TABLET PO ONE (08:17)
[2023-11-23] MEDS: IOHEXOL-300 100 ML BOTTLE ONE (08:46)
[2023-11-23] MEDS: FUROSEMIDE 100MG/10ML VIAL IV STA (08:46)
[2023-11-23] MEDS: ALBUTEROL (0.083%) 2.5MG/3ML NEB HHN ONE (08:55)
[2023-11-23] MEDS: ENOXAPARIN 80MG/0.8ML SYR SUBCUT SCH (09:39)
[2023-11-23] MEDS: ASPIRIN 325MG EC TABLET PO NR (09:39)
[2023-11-23] MEDS ORDERED: GUAIFENESIN 200MG/10ML SUGAR FREE UDC PO PRN (10:45)
[2023-11-23] MEDS ORDERED: IPRATROPIUM/ALBUTEROL 0.5-3(2.5)MG/3ML NEB NEB PRN (10:45)
[2023-11-23] MEDS ORDERED: NITROGLYCERIN 0.4MG TABLET SL SL PRN (10:45)
[2023-11-23 11:24] LABS: PLATELET ESTIMATE NORMAL
[2023-11-23 11:26] LABS: GIANT PLATELETS 1+
[2023-11-23] MEDS: CLOPIDOGREL 75MG TABLET PO SCH (11:28)
[2023-11-23] MEDS: AMLODIPINE 5MG TABLET PO SCH (11:29)
[2023-11-23 11:46] LABS: IRON 47 ug/dL (50-170)
[2023-11-23 11:47] LABS: TRIGLYCERIDE 115 mg/dL (0-150)
[2023-11-23 11:48] LABS: LDL CHOLESTEROL 125 mg/dL (5-100)
[2023-11-23 11:49] LABS: CHOLESTEROL 198 mg/dL (<200); HDL CHOLESTEROL 53 mg/dL (>65); TOTAL IRON BINDING CAPACITY 227 ug/dl (250-425)
[2023-11-23 11:53] LABS: VITAMIN B12 SERUM 690 pg/mL (211-911)
[2023-11-23 11:54] LABS: FOLIC ACID (FOLATE) SERUM 10.04 ng/mL (>5.38)
[2023-11-23 11:56] LABS: T4 FREE 0.96 ng/dL (0.89-1.76); THYROID STIMULATING HORMONE 0.76 uIU/mL (0.55-4.78)
[2023-11-23] MEDS: CLONIDINE 0.1MG TABLET PO PRN (12:53)
[2023-11-23] MEDS: SEVELAMER CARBONATE 800 MG TABLET PO SCH (13:08)
[2023-11-23] MEDS: HYDRALAZINE HCL 50MG TABLET PO SCH (14:44)
[2023-11-23 15:50] LABS: CREATINE KINASE MB FRACTION 3.5 ng/mL (0.5-3.6)
[2023-11-23 16:05] LABS: HEPATITIS B SURFACE ANTIGEN NEGATIVE (Negative)
[2023-11-23 16:26] LABS: HEPATITIS A AB IGM NEGATIVE (Negative); HEPATITIS B CORE AB IGM NEGATIVE (Negative)
[2023-11-23 16:27] LABS: HEPATITIS C AB NON REACTIVE (Neg) (Negative)
[2023-11-23] MEDS: ZOLPIDEM TARTRATE 5MG TABLET PO PRN (22:34)
[2023-11-23] MEDS: FAMOTIDINE 20MG TABLET PO SCH (22:35)
[2023-11-23] MEDS: ACETAMINOPHEN 325MG TABLET PO PRN (22:35)
[2023-11-23] MEDS: ATORVASTATIN CALCIUM 10MG TABLET PO SCH (22:36)
[2023-11-23 23:17] LABS: CREATINE KINASE MB FRACTION 3.3 ng/mL (0.5-3.6)
[2023-11-24 07:19] LABS: CARBON DIOXIDE 27 mEq/L (21-32); CHLORIDE 104 mEq/L (98-107); POTASSIUM 5.2 mEq/L (3.5-5.1); SODIUM 138 mEq/L (136-145)
[2023-11-24 07:20] LABS: CALCIUM 8.1 mg/dL (8.7-10.4)
[2023-11-24 07:24] LABS: GLUCOSE 98 mg/dL (70-105)
[2023-11-24 07:25] LABS: UREA NITROGEN BLOOD 54 mg/dL (9-23)
[2023-11-24 07:27] LABS: PHOSPHORUS 5.1 mg/dL (2.5-4.9)
[2023-11-24 07:35] LABS: HEMATOCRIT. 24.5 % (36.0-48.0); HEMOGLOBIN. 7.9 g/dL (12.0-16.0); MEAN CORPUSCULAR HEMOGLOBIN 30.9 pg (28.0-32.0); MEAN CORPUSCULAR HGB CONC 32.2 g/dL (31.0-37.0); MEAN CORPUSCULAR VOLUME 95.8 fL (81.0-99.0); MEAN PLATELET VOLUME 10.5 fl (7.4-10.4); PLATELET 110 x1000/uL (130-400); RED BLOOD CELL COUNT 2.56 mill/uL (4.2-5.4); WHITE BLOOD COUNT 2.3 x1000/uL (4.5-11.0)
[2023-11-24 07:41] LABS: CREATININE 8.8 mg/dL (0.6-1.0)
[2023-11-24 08:01] LABS: DIFFERENTIAL COMMENT 1
[2023-11-24] MEDS: ASPIRIN 81MG EC TABLET PO SCH (09:00)
[2023-11-24 09:16] VITALS: BP 141/65; PULSE 70; RESP 18; TEMP 36.4736
[2023-11-24] MEDS: ENOXAPARIN 30MG/0.3ML SYR SUBCUT SCH (10:00)
[2023-11-24] MEDS: AMLODIPINE 10MG TABLET PO SCH (10:08)
[2023-11-24 12:00] VITALS: BP 164/82; PULSE 71; RESP 18; TEMP 35.78064; O2SAT 92
[2023-11-24 13:10] VITALS: BP 156/85
[2023-11-24 16:00] VITALS: BP 160/90; PULSE 69; RESP 22; TEMP 36.44736; O2SAT 97
[2023-11-24 16:03] LABS: PLATELET ESTIMATE NORMAL
[2023-11-24 20:00] VITALS: BP 166/86; PULSE 74; RESP 19; TEMP 36.50292; O2SAT 98
[2023-11-25] VITALS (11 sets, daily range): BP systolic 120–179; BP diastolic 60–90; PULSE 65–78; RESP 16–20; TEMP 36.50292–37.00296; O2SAT 96–98
[2023-11-25] MEDS: HYDRALAZINE HCL 100MG TABLET PO SCH (13:05)
[2023-11-25] MEDS: DOCUSATE SODIUM 100MG CAPSULE PO PRN (15:01)
[2023-11-25 15:12] LABS: *AMPHETAMINES SCREEN URINE NEGATIVE (NEGATIVE); *BENZODIAZEPINES SCREEN URINE NEGATIVE (NEGATIVE)
[2023-11-25 15:13] LABS: *BARBITURATES SCREEN URINE NEGATIVE (NEGATIVE); *COCAINE SCREEN URINE PRESUMPTIVE POSITIVE (NEGATIVE); CANNABINOID URINE SCREEN NEGATIVE (NEGATIVE); ECSTASY MDMA SCREEN URINE NEGATIVE (NEGATIVE); METHADONE URINE SCREEN NEGATIVE (NEGATIVE); OPIATES URINE SCREEN PRESUMPTIVE POSITIVE (NEGATIVE); PHENCYCLIDINE URINE SCREEN NEGATIVE (NEGATIVE)
[2023-11-25] MEDS: MAGNESIUM/ALUMINUM HYDROXIDE/SIMETHICONE 30ML UDC PO PRN (21:27)
[2023-11-26] VITALS: BP 135/69; PULSE 70; RESP 18; TEMP 36.6696; O2SAT 98
[2023-11-26 04:00] VITALS: BP 145/69; PULSE 68; RESP 18; TEMP 36.89184; O2SAT 97
[2023-11-26 08:00] VITALS: BP 148/82; PULSE 63; RESP 18; TEMP 37.2252; O2SAT 99
[2023-11-26 12:00] VITALS: BP 152/82; PULSE 70; RESP 18; TEMP 37.00296; O2SAT 99
[2023-11-26 16:00] VITALS: BP 107/68; PULSE 69; RESP 22; TEMP 36.61404; O2SAT 100
[2023-11-26 20:40] VITALS: BP 132/68; PULSE 65; RESP 19; TEMP 36.55848
[2023-11-26] MEDS: ATORVASTATIN CALCIUM 40MG TABLET PO SCH (21:22)
[2023-11-27] VITALS (16 sets, daily range): BP systolic 119–166; BP diastolic 54–95; PULSE 60–78; RESP 16–20; TEMP 36.55848–37.16964; O2SAT 95–100
[2023-11-27 09:21] LABS: HEMATOCRIT. 23.9 % (36.0-48.0); HEMOGLOBIN. 7.8 g/dL (12.0-16.0); MEAN CORPUSCULAR HEMOGLOBIN 30.5 pg (28.0-32.0); MEAN CORPUSCULAR HGB CONC 32.5 g/dL (31.0-37.0); MEAN CORPUSCULAR VOLUME 93.9 fL (81.0-99.0); MEAN PLATELET VOLUME 9.9 fl (7.4-10.4); PLATELET 133 x1000/uL (130-400); RED BLOOD CELL COUNT 2.55 mill/uL (4.2-5.4); RED CELL DISTRIBUTION WIDTH 14.8 % (11.6-14.6)
[2023-11-27 09:31] LABS: DIFFERENTIAL COMMENT 1
[2023-11-27 09:39] LABS: POTASSIUM 5.2 mEq/L (3.5-5.1)
[2023-11-27 09:54] LABS: CREATININE 9.8 mg/dL (0.6-1.0)
[2023-11-27 12:01] LABS: PLATELET ESTIMATE NORMAL
[2023-11-27] MEDS: EPOETIN ALFA-EPBX 4,000 UNIT/ML VIAL SUBCUT SCH (20:52)
[2023-11-28] VITALS (9 sets, daily range): BP systolic 132–173; BP diastolic 66–87; PULSE 62–75; RESP 18–20; TEMP 36.61404–37.16964; O2SAT 95–100
[2023-11-29] VITALS (18 sets, daily range): BP systolic 132–179; BP diastolic 68–89; PULSE 61–75; RESP 16–20; TEMP 36.22512–37.11408; O2SAT 96–100
[2023-11-29 05:59] LABS: HEMATOCRIT. 24.6 % (36.0-48.0); MEAN CORPUSCULAR HEMOGLOBIN 30.8 pg (28.0-32.0); MEAN CORPUSCULAR HGB CONC 32.6 g/dL (31.0-37.0); MEAN CORPUSCULAR VOLUME 94.5 fL (81.0-99.0); MEAN PLATELET VOLUME 10.4 fl (7.4-10.4); PLATELET 138 x1000/uL (130-400); RED CELL DISTRIBUTION WIDTH 15.2 % (11.6-14.6); WHITE BLOOD COUNT 2.6 x1000/uL (4.5-11.0)
[2023-11-29 06:15] LABS: POTASSIUM 6.1 mEq/L (3.5-5.1)
[2023-11-29 06:34] LABS: CREATININE 9.8 mg/dL (0.6-1.0)
[2023-11-29 07:04] LABS: DIFFERENTIAL COMMENT 1
[2023-11-29] MEDS: INSULIN REGULAR (HUMULIN R) 1000UNITS/10ML VIAL IV NR (10:50)
[2023-11-29 14:15] LABS: PLATELET ESTIMATE NORMAL
[2023-11-29] MEDS: DEXTROSE 50% WATER 50ML SYRINGE IV NR (15:31)
[2023-11-29] MEDS: CALCIUM GLUCONATE 1GM PREMIX 50 ML IV NR (15:32)
[2023-11-29] MEDS: SODIUM BICARBONATE 8.4% 50MEQ/50ML SYR IV NR (15:32)
[2023-11-29] MEDS: SODIUM ZIRCONIUM CYCLOSILICATE 10GM/PACKET PO NR (15:41)
[2023-11-29 17:23] LABS: HEMATOCRIT 28.6 % (36.0-48.0); HEMOGLOBIN 9.3 g/dL (12.0-16.0)
[2023-11-30] VITALS (32 sets, daily range): BP systolic 111–188; BP diastolic 50–86; PULSE 62–76; RESP 0–21; TEMP 35.2806–37.05852; O2SAT 93–99
[2023-11-30 09:24] LABS: CALCIUM 8.9 mg/dL (8.7-10.4)
[2023-11-30 09:26] LABS: HEMATOCRIT. 28.7 % (36.0-48.0); HEMOGLOBIN. 9.5 g/dL (12.0-16.0); MEAN CORPUSCULAR HGB CONC 33.1 g/dL (31.0-37.0); MEAN CORPUSCULAR VOLUME 93.5 fL (81.0-99.0); PLATELET 149 x1000/uL (130-400); RED BLOOD CELL COUNT 3.07 mill/uL (4.2-5.4); RED CELL DISTRIBUTION WIDTH 15.2 % (11.6-14.6); WHITE BLOOD COUNT 2.7 x1000/uL (4.5-11.0)
[2023-11-30 09:27] LABS: DIFFERENTIAL COMMENT 1
[2023-11-30] MEDS ORDERED: GENTAMICIN SULF 40MG/ML 2ML VIAL ONE (10:09)
[2023-11-30] MEDS ORDERED: THROMBIN (BOVINE) 5000 UNITS/VIAL TOP ONE (10:09)
[2023-11-30] MEDS ORDERED: LIDOCAINE HCL/EPINEPHRINE 1%-EPI 1:100,000 20ML VIAL ONE (10:09)
[2023-11-30 10:11] LABS: CREATININE 7.7 mg/dL (0.6-1.0)
[2023-11-30] MEDS ORDERED: LIDOCAINE HCL 1% 10 MG/ML 10ML VIAL ONE ×3 (12:24→13:20)
[2023-11-30] MEDS ORDERED: ROCURONIUM BROMIDE 10MG/ML VIAL 5ML IV ONE ×3 (12:25→14:23)
[2023-11-30] MEDS ORDERED: PROPOFOL 200MG/20ML VIAL IV ONE ×3 (12:25→13:33)
[2023-11-30] MEDS ORDERED: FENTANYL CITRATE/PF 50MCG/ML 2ML VIAL ONE (12:25)
[2023-11-30] MEDS ORDERED: PHENYLEPHRINE 50MG/250ML PMX 250 ML IV ONE (13:05)
[2023-11-30] MEDS ORDERED: NICARDIPINE 40MG/200ML PREMIX 200 ML IV ONE (13:06)
[2023-11-30] MEDS ORDERED: FENTANYL CITRATE/PF 50MCG/ML 5ML VIAL ONE (13:12)
[2023-11-30] MEDS ORDERED: HYDROMORPHONE HCL/PF 2MG/ML INJ ONE (13:12)
[2023-11-30] MEDS ORDERED: DESMOPRESSIN ACETATE 4MCG/ML AMP ONE ×2 (14:23→14:24)
[2023-11-30] MEDS ORDERED: SUGAMMADEX SODIUM 200MG/2ML VIAL IV ONE (15:21)
[2023-11-30] MEDS ORDERED: HEPARIN 1000 UNITS/ML 10ML ONE (15:39)
[2023-11-30] MEDS ORDERED: NALOXONE HCL 0.4MG/ML VIAL IV PRN (16:00)
[2023-11-30 16:08] LABS: PLATELET ESTIMATE NORMAL
[2023-11-30] MEDS: NICARDIPINE 100 MG in SODIUM CHLORIDE 0.9% 60 ML IV PRN (17:11)
[2023-11-30] MEDS: CEFAZOLIN 1000MG PREMIX 50ML IV SCH (17:13)
[2023-11-30] MEDS: DEXAMETHASONE 4MG/ML 1ML VIAL IV SCH (17:13)
[2023-11-30] MEDS: DEXT 5%/0.9% NACL 1,000 ML IV SCH (17:13)
[2023-11-30] MEDS: MORPHINE SULFATE 4 MG/ML INJ (FOR IV/IM USE) IV PRN (18:15)
[2023-11-30] MEDS ORDERED: CEFAZOLIN SODIUM 1000MG/VIAL IV SCH (22:00)
[2023-11-30] MEDS: ONDANSETRON HCL 4MG/2ML INJ IV PRN (22:31)
[2023-12-01] VITALS (94 sets, daily range): BP systolic 124–161; BP diastolic 60–83; PULSE 65–81; RESP 0–25; TEMP 36.55848–36.72516; O2SAT 89–100
[2023-12-01 05:39] LABS: CALCIUM 8.8 mg/dL (8.7-10.4)
[2023-12-01 06:00] LABS: HEMOGLOBIN. 9.4 g/dL (12.0-16.0); MEAN CORPUSCULAR HEMOGLOBIN 31.5 pg (28.0-32.0); MEAN CORPUSCULAR HGB CONC 33.4 g/dL (31.0-37.0); MEAN CORPUSCULAR VOLUME 94.2 fL (81.0-99.0); MEAN PLATELET VOLUME 10.6 fl (7.4-10.4); PLATELET 144 x1000/uL (130-400); RED BLOOD CELL COUNT 2.97 mill/uL (4.2-5.4); RED CELL DISTRIBUTION WIDTH 14.6 % (11.6-14.6)
[2023-12-01 06:20] LABS: CREATININE 8.4 mg/dL (0.6-1.0); POTASSIUM 6.2 mEq/L (3.5-5.1)
[2023-12-01 06:41] LABS: DIFFERENTIAL COMMENT 1
[2023-12-01] MEDS ORDERED: CALCIUM GLUCONATE 1,000 MG in DEXT 5% WATER 90 ML IV STA (07:17)
[2023-12-01] MEDS: DEXTROSE 50% WATER 50ML SYRINGE IV NR (10:32)
[2023-12-01] MEDS: INSULIN REGULAR (HUMULIN R) 1000UNITS/10ML VIAL IV NR (10:33)
[2023-12-01] MEDS: SODIUM BICARBONATE 8.4% 50MEQ/50ML SYR IV NR (10:46)
[2023-12-01] MEDS: CALCIUM GLUCONATE 1GM PREMIX 50 ML IV SCH (10:48)
[2023-12-01 12:57] LABS: PLATELET ESTIMATE NORMAL
[2023-12-01 16:21] LABS: POTASSIUM 4.3 mEq/L (3.5-5.1)
[2023-12-01] MEDS: HYDROMORPHONE HCL/PF 1MG/ML INJ IV PRN (17:48)
[2023-12-02] VITALS (100 sets, daily range): BP systolic 119–165; BP diastolic 56–96; PULSE 64–80; RESP 10–19; TEMP 36.50292–36.83628; O2SAT 90–99
[2023-12-02] MEDS: HYDROCODONE/ACETAMINOPHEN 7.5/325MG TABLET PO PRN (00:13)
[2023-12-02 05:10] LABS: POTASSIUM 5.4 mEq/L (3.5-5.1)
[2023-12-02 05:13] LABS: CALCIUM 8.4 mg/dL (8.7-10.4)
[2023-12-02 05:31] LABS: HEMATOCRIT. 26.9 % (36.0-48.0); HEMOGLOBIN. 8.9 g/dL (12.0-16.0); MEAN CORPUSCULAR HEMOGLOBIN 31.3 pg (28.0-32.0); MEAN CORPUSCULAR HGB CONC 32.9 g/dL (31.0-37.0); MEAN CORPUSCULAR VOLUME 94.9 fL (81.0-99.0); MEAN PLATELET VOLUME 10.4 fl (7.4-10.4); PLATELET 158 x1000/uL (130-400); RED BLOOD CELL COUNT 2.84 mill/uL (4.2-5.4); RED CELL DISTRIBUTION WIDTH 14.8 % (11.6-14.6); WHITE BLOOD COUNT 5.7 x1000/uL (4.5-11.0)
[2023-12-02 06:10] LABS: CREATININE 7.5 mg/dL (0.6-1.0); DIFFERENTIAL COMMENT 1
[2023-12-02] MEDS ORDERED: SODIUM POLYSTYRENE SULFONATE 15 G/60 ML BOT PO ONE (09:15)
[2023-12-02] MEDS: SODIUM ZIRCONIUM CYCLOSILICATE 10GM/PACKET PO NR (09:57)
[2023-12-02 15:12] LABS: PLATELET ESTIMATE NORMAL
[2023-12-02] MEDS: NITROGLYCERIN OINT 1GM/INCH UDPKT TD SCH (17:23)
[2023-12-03] VITALS (91 sets, daily range): BP systolic 126–162; BP diastolic 56–78; PULSE 70–84; RESP 11–22; TEMP 36.50292–37.61412; O2SAT 90–96
[2023-12-03 05:49] LABS: BASOPHILS % 0.3 % (0.0-2.0); EOSINOPHILS % 0.4 % (0.0-5.0); HEMATOCRIT. 26.9 % (36.0-48.0); HEMOGLOBIN. 8.8 g/dL (12.0-16.0); MEAN CORPUSCULAR HEMOGLOBIN 30.8 pg (28.0-32.0); MEAN CORPUSCULAR HGB CONC 32.6 g/dL (31.0-37.0); MEAN CORPUSCULAR VOLUME 94.5 fL (81.0-99.0); MEAN PLATELET VOLUME 10.5 fl (7.4-10.4); MONOCYTES % 11.5 % (2.0-8.0); NEUTROPHILS % 77.8 % (40.0-76.0); PLATELET 151 x1000/uL (130-400); RED BLOOD CELL COUNT 2.84 mill/uL (4.2-5.4); RED CELL DISTRIBUTION WIDTH 14.9 % (11.6-14.6); WHITE BLOOD COUNT 4.9 x1000/uL (4.5-11.0)
[2023-12-03 05:55] LABS: CALCIUM 8.2 mg/dL (8.7-10.4); POTASSIUM 4.3 mEq/L (3.5-5.1)
[2023-12-03] MEDS: EPOETIN ALFA-EPBX 4,000 UNIT/ML VIAL SUBCUT SCH (21:38)
[2023-12-04] VITALS (87 sets, daily range): BP systolic 130–184; BP diastolic 51–87; PULSE 73–104; RESP 11–26; TEMP 36.78072–37.16964; O2SAT 93–100
[2023-12-04 05:22] LABS: CHLORIDE 102 mEq/L (98-107); POTASSIUM 4.7 mEq/L (3.5-5.1); SODIUM 136 mEq/L (136-145)
[2023-12-04 05:23] LABS: CARBON DIOXIDE 26 mEq/L (21-32)
[2023-12-04] MEDS: MINOXIDIL 10MG TABLET PO SCH (10:25)
[2023-12-04] MEDS: HYDRALAZINE 20MG/ML VIAL IV PRN (11:19)
[2023-12-04] MEDS: HYDROMORPHONE HCL/PF 1MG/ML INJ IV PRN (17:33)
[2023-12-05] VITALS (54 sets, daily range): BP systolic 93–176; BP diastolic 48–89; PULSE 82–98; RESP 11–22; TEMP 36.55848–38.00304; O2SAT 83–99
[2023-12-05 05:22] LABS: BASOPHILS % 0.5 % (0.0-2.0); EOSINOPHILS % 0.1 % (0.0-5.0); HEMATOCRIT. 29.1 % (36.0-48.0); HEMOGLOBIN. 9.6 g/dL (12.0-16.0); LYMPHOCYTES % 9.5 % (20.0-50.0); MEAN CORPUSCULAR HEMOGLOBIN 31.1 pg (28.0-32.0); MEAN CORPUSCULAR VOLUME 94.1 fL (81.0-99.0); MEAN PLATELET VOLUME 10.2 fl (7.4-10.4); MONOCYTES % 14.1 % (2.0-8.0); NEUTROPHILS % 75.8 % (40.0-76.0); PLATELET 168 x1000/uL (130-400); RED BLOOD CELL COUNT 3.09 mill/uL (4.2-5.4); RED CELL DISTRIBUTION WIDTH 14.3 % (11.6-14.6); WHITE BLOOD COUNT 5.5 x1000/uL (4.5-11.0)
[2023-12-05 05:22] LABS: POTASSIUM 4.9 mEq/L (3.5-5.1)
[2023-12-05 05:24] LABS: CALCIUM 8.6 mg/dL (8.7-10.4)
[2023-12-05 06:08] LABS: CREATININE 7.1 mg/dL (0.6-1.0)
[2023-12-05] MEDS: NIFEDIPINE XL 30MG TAB PO SCH (08:17)
[2023-12-05] MEDS: LISINOPRIL 10MG TABLET PO SCH (09:34)
[2023-12-05] MEDS ORDERED: CLONIDINE 0.1MG TABLET PO PRN (10:45)
[2023-12-05] MEDS ORDERED: NIFEDIPINE 10MG CAPSULE PO SCH (14:00)
[2023-12-06] VITALS (40 sets, daily range): BP systolic 100–157; BP diastolic 51–70; PULSE 77–88; RESP 9–20; TEMP 36.61404–38.00304; O2SAT 94–100
[2023-12-06 06:05] LABS: CALCIUM 8.7 mg/dL (8.7-10.4); POTASSIUM 5.5 mEq/L (3.5-5.1)
[2023-12-06 06:17] LABS: CREATININE 9.5 mg/dL (0.6-1.0)
[2023-12-06] MEDS: ACETAMINOPHEN 325MG TABLET PO PRN (06:20)
[2023-12-06 06:45] LABS: HEMATOCRIT. 30.2 % (36.0-48.0); HEMOGLOBIN. 9.9 g/dL (12.0-16.0); MEAN CORPUSCULAR HEMOGLOBIN 31.2 pg (28.0-32.0); MEAN CORPUSCULAR HGB CONC 32.8 g/dL (31.0-37.0); MEAN PLATELET VOLUME 9.8 fl (7.4-10.4); PLATELET 190 x1000/uL (130-400); RED BLOOD CELL COUNT 3.18 mill/uL (4.2-5.4); RED CELL DISTRIBUTION WIDTH 14.2 % (11.6-14.6)
[2023-12-06 07:08] LABS: DIFFERENTIAL COMMENT 1
[2023-12-06] MEDS ORDERED: NALOXONE HCL 0.4MG/ML VIAL IV PRN ×2 (07:30→10:30)
[2023-12-06] MEDS: AMLODIPINE 10MG TABLET PO SCH (09:00)
[2023-12-06] MEDS: HYDROCODONE/ACETAMINOPHEN 5/325MG TABLET PO PRN (10:35)
[2023-12-06 13:07] LABS: ANISOCYTOSIS 1+; PLATELET ESTIMATE NORMAL
[2023-12-06] MEDS ORDERED: HYDRALAZINE 10 MG in SODIUM CHLORIDE 0.9% 49.5 ML IV PRN (14:15)
[2023-12-06] MEDS: SODIUM ZIRCONIUM CYCLOSILICATE 10GM/PACKET PO NR (16:06)
[2023-12-07] VITALS (11 sets, daily range): BP systolic 117–142; BP diastolic 60–78; PULSE 68–76; RESP 16–20; TEMP 36.22512–36.55848; O2SAT 98–99
[2023-12-07 07:39] LABS: POTASSIUM 5.6 mEq/L (3.5-5.1)
[2023-12-07 07:40] LABS: CALCIUM 8.1 mg/dL (8.7-10.4)
[2023-12-07 08:09] LABS: BASOPHILS % 0.3 % (0.0-2.0); HEMATOCRIT. 27.7 % (36.0-48.0); LYMPHOCYTES % 9.9 % (20.0-50.0); MEAN CORPUSCULAR HEMOGLOBIN 30.2 pg (28.0-32.0); MEAN CORPUSCULAR HGB CONC 32.6 g/dL (31.0-37.0); MEAN CORPUSCULAR VOLUME 92.5 fL (81.0-99.0); MEAN PLATELET VOLUME 9.5 fl (7.4-10.4); MONOCYTES % 14.6 % (2.0-8.0); NEUTROPHILS % 74.2 % (40.0-76.0); PLATELET 201 x1000/uL (130-400); RED BLOOD CELL COUNT 2.99 mill/uL (4.2-5.4); RED CELL DISTRIBUTION WIDTH 14.1 % (11.6-14.6); WHITE BLOOD COUNT 5.6 x1000/uL (4.5-11.0)
[2023-12-07 08:31] LABS: CREATININE 10.6 mg/dL (0.6-1.0)
[2023-12-08] VITALS: BP 127/59; PULSE 79; RESP 20; TEMP 36.28068
[2023-12-08 04:00] VITALS: BP 139/63; PULSE 80; RESP 20; TEMP 36.3918; O2SAT 96
[2023-12-08 08:00] VITALS: BP 127/61; PULSE 80; RESP 19; TEMP 36.33624; O2SAT 97
[2023-12-08 12:00] VITALS: BP 128/59; PULSE 78; RESP 18; TEMP 36.44736; O2SAT 98
[2023-12-08 16:00] VITALS: BP 135/61; PULSE 82; RESP 18; TEMP 36.50292; O2SAT 97
[2023-12-08 20:00] VITALS: BP 110/65; PULSE 80; RESP 17; TEMP 36.89184; O2SAT 100
[2023-12-08] MEDS ORDERED: ATORVASTATIN CALCIUM 40MG TABLET PO SCH (21:00)
[2023-12-09] VITALS (12 sets, daily range): BP systolic 92–128; BP diastolic 46–65; PULSE 79–92; RESP 16–20; TEMP 36.28068–38.22528; O2SAT 96–100
[2023-12-09 07:35] LABS: CHLORIDE 99 mEq/L (98-107); POTASSIUM 5.7 mEq/L (3.5-5.1); SODIUM 133 mEq/L (136-145)
[2023-12-09 07:38] LABS: CALCIUM 8.6 mg/dL (8.7-10.4); CARBON DIOXIDE 23 mEq/L (21-32)
[2023-12-09 07:43] LABS: ALANINE AMINOTRANSFERASE < 7 IU/L (10-49); GLUCOSE 123 mg/dL (70-105)
[2023-12-09 07:44] LABS: ALBUMIN 3.4 g/dL (3.2-4.8); LDL CHOLESTEROL 71 mg/dL (5-100); TRIGLYCERIDE 115 mg/dL (0-150); UREA NITROGEN BLOOD 64 mg/dL (9-23)
[2023-12-09 07:45] LABS: ASPARTATE AMINOTRANSFERASE 10 IU/L (<34); CHOLESTEROL 134 mg/dL (<200); HDL CHOLESTEROL 40 mg/dL (>65); PHOSPHORUS 6.6 mg/dL (2.5-4.9)
[2023-12-09 07:46] LABS: BILIRUBIN TOTAL < 0.2 mg/dL (0.1-1.0)
[2023-12-09 07:49] LABS: HEMATOCRIT. 29.5 % (36.0-48.0); HEMOGLOBIN. 9.7 g/dL (12.0-16.0); MEAN CORPUSCULAR HEMOGLOBIN 30.2 pg (28.0-32.0); MEAN CORPUSCULAR HGB CONC 32.7 g/dL (31.0-37.0); MEAN CORPUSCULAR VOLUME 92.5 fL (81.0-99.0); MEAN PLATELET VOLUME 9.2 fl (7.4-10.4); PLATELET 259 x1000/uL (130-400); RED BLOOD CELL COUNT 3.19 mill/uL (4.2-5.4); RED CELL DISTRIBUTION WIDTH 14.1 % (11.6-14.6)
[2023-12-09 08:04] LABS: DIFFERENTIAL COMMENT 1
[2023-12-09 08:10] LABS: CREATININE 10.2 mg/dL (0.6-1.0)
[2023-12-09] MEDS ORDERED: ACETAMINOPHEN 325MG TABLET PO PRN (10:45)
[2023-12-09 11:11] LABS: PLATELET ESTIMATE NORMAL
[2023-12-09] MEDS: HYDROCODONE/ACETAMINOPHEN 5/325MG TABLET PO PRN (19:42)
[2023-12-09 22:38] LABS: POTASSIUM 4.3 mEq/L (3.5-5.1)
[2023-12-09 23:02] LABS: HEPATITIS B SURFACE AB > 1000.0 mIU/mL (<10)
[2023-12-09 23:07] LABS: HEPATITIS B SURFACE ANTIGEN NEGATIVE (Negative)
[2023-12-09 23:27] LABS: HEPATITIS A AB IGM NEGATIVE (Negative)
[2023-12-09 23:28] LABS: HEPATITIS B CORE AB IGM NEGATIVE (Negative)
[2023-12-09 23:29] LABS: HEPATITIS C AB NON REACTIVE (Neg) (Negative)
[2023-12-10] VITALS: BP 101/40; PULSE 88; RESP 20; TEMP 38.50308; O2SAT 95
[2023-12-10 04:00] VITALS: BP 106/45; PULSE 86; RESP 20; TEMP 37.7808; O2SAT 95
[2023-12-10 08:00] VITALS: BP 114/50; PULSE 82; RESP 18; TEMP 36.61404; O2SAT 97
[2023-12-10] MEDS: LISINOPRIL 5MG TABLET PO SCH (09:17)
[2023-12-10 12:00] VITALS: BP 109/53; PULSE 60; RESP 17; TEMP 37.2252; O2SAT 95
[2023-12-10 16:00] VITALS: BP 108/56; PULSE 61; RESP 18; TEMP 37.11408; O2SAT 96
[2023-12-10 20:00] VITALS: BP 98/48; PULSE 80; RESP 18; TEMP 35.78064; O2SAT 96
[2023-12-11] VITALS (8 sets, daily range): BP systolic 99–129; BP diastolic 47–62; PULSE 18–98; RESP 17–20; TEMP 36.50292–37.16964; O2SAT 96–100
== END 2023-12-11 21:20 | disposition left against medical advice (07) | DRG 321 ==
LOC: ER 04:38 → 5WST 09:18 → EDBEDREQ 09:19 → EDBEDREQTM 09:19 → 7WST 11-24 08:47 → MICUSO 11-30 15:50 → MICUNO 12-05 16:47 → 6EST 12-06 13:55
PROVIDERS: ADMIT Internal Medicine; ATTEND Internal Medicine
PROC: 5A1D70Z Performance of Urinary Filtration, Intermittent, Less than 6 Hours Per Day (ICD-10-PCS; 2023-11-23)
PROC: 5A1D70Z Performance of Urinary Filtration, Intermittent, Less than 6 Hours Per Day (ICD-10-PCS; 2023-11-25)
PROC: 5A1D70Z Performance of Urinary Filtration, Intermittent, Less than 6 Hours Per Day (ICD-10-PCS; 2023-11-27)
PROC: 30233N1 Transfusion of Nonautologous Red Blood Cells into Peripheral Vein, Percutaneous Approach (ICD-10-PCS; 2023-11-29)
PROC: 5A1D70Z Performance of Urinary Filtration, Intermittent, Less than 6 Hours Per Day (ICD-10-PCS; 2023-11-29)
PROC: 0RG2071 Fusion of 2 or more Cervical Vertebral Joints with Autologous Tissue Substitute, Posterior Approach, Posterior Column, Open Approach (ICD-10-PCS; principal; 2023-11-30)
PROC: 4A11X4G Monitoring of Peripheral Nervous Electrical Activity, Intraoperative, External Approach (ICD-10-PCS; 2023-11-30)
PROC: 5A1D70Z Performance of Urinary Filtration, Intermittent, Less than 6 Hours Per Day (ICD-10-PCS; 2023-12-01)
PROC: 5A1D70Z Performance of Urinary Filtration, Intermittent, Less than 6 Hours Per Day (ICD-10-PCS; 2023-12-02)
PROC: 5A1D70Z Performance of Urinary Filtration, Intermittent, Less than 6 Hours Per Day (ICD-10-PCS; 2023-12-04)
PROC: 5A1D70Z Performance of Urinary Filtration, Intermittent, Less than 6 Hours Per Day (ICD-10-PCS; 2023-12-07)
PROC: 5A1D70Z Performance of Urinary Filtration, Intermittent, Less than 6 Hours Per Day (ICD-10-PCS; 2023-12-09)
PROC: 5A1D70Z Performance of Urinary Filtration, Intermittent, Less than 6 Hours Per Day (ICD-10-PCS; 2023-12-11)
DX: M48.02 Spinal stenosis, cervical region (principal); G82.50 Quadriplegia, unspecified; G95.89 Other specified diseases of spinal cord; D61.818 Other pancytopenia; I21.4 Non-ST elevation (NSTEMI) myocardial infarction; I50.33 Acute on chronic diastolic (congestive) heart failure; R18.8 Other ascites; N18.6 End stage renal disease; I63.89 Other cerebral infarction; M47.12 Other spondylosis with myelopathy, cervical region; M50.00 Cervical disc disorder with myelopathy, unspecified cervical region; E83.51 Hypocalcemia; D63.1 Anemia in chronic kidney disease; I69.351 Hemiplegia and hemiparesis following cerebral infarction affecting right dominant side; E11.22 Type 2 diabetes mellitus with diabetic chronic kidney disease; S02.2XXA Fracture of nasal bones, initial encounter for closed fracture; I13.2 Hypertensive heart and chronic kidney disease with heart failure and with stage 5 chronic kidney disease, or end stage renal disease; I16.0 Hypertensive urgency; R29.6 Repeated falls; Z99.2 Dependence on renal dialysis; E87.5 Hyperkalemia; Z91.199 Patient's noncompliance with other medical treatment and regimen due to unspecified reason; E05.90 Thyrotoxicosis, unspecified without thyrotoxic crisis or storm; Z91.81 History of falling; F17.210 Nicotine dependence, cigarettes, uncomplicated; G31.9 Degenerative disease of nervous system, unspecified; Z79.84 Long term (current) use of oral hypoglycemic drugs; Z82.49 Family history of ischemic heart disease and other diseases of the circulatory system; Z79.82 Long term (current) use of aspirin; Z79.899 Other long term (current) drug therapy; Z79.02 Long term (current) use of antithrombotics/antiplatelets; Z20.822 Contact with and (suspected) exposure to COVID-19; Z53.29 Procedure and treatment not carried out because of patient's decision for other reasons; F14.10 Cocaine abuse, uncomplicated; X58.XXXA Exposure to other specified factors, initial encounter; Y93.89 Activity, other specified; Y92.89 Other specified places as the place of occurrence of the external cause; Y99.8 Other external cause status
CPT/HCPCS: 36415; 70486; 70551; 71045; 72040; 72141; 74177; 76000; 80048; 80051; 80053; 80061; 80076; 80305; 80320; 82550; 82553; 82607; 82746; 83036; 83540; 83550; 83735; 83880; 84100; 84132; 84145; 84439; 84443; 84484; 84703; 85014; 85018; 85025; 86705; 86706; 86709; 86850; 86900; 86920; 87340; 87426; 88304; 88311; 90935; 92610; 93005; 93306; 93970; 94640; 97116; 97162; 97164; 97167; 97530; 97535; 99291; 99292; J0360; J0610; J0690; J0885; J1100; J1170; J1580; J1644; J1650; J1815; J1940; J2270; J2405; J2597; J2704; J3010; J3490; J7042; J7050; L0172; P9016; Q9967; C1713; G0480

== ENCOUNTER 2023-12-13 17:43 | Inpatient (IN) | payer MEDICAID ==
[~2023-12-13] VITALS: Ht 170.2 cm; Wt 85.7 kg
[2023-12-13 17:47] VITALS: O2SAT 99
[2023-12-13 20:18] LABS: BASOPHILS % 0.8 % (0.0-2.0); EOSINOPHILS % 1.3 % (0.0-5.0); HEMATOCRIT. 27.5 % (36.0-48.0); HEMOGLOBIN. 9.3 g/dL (12.0-16.0); LYMPHOCYTES % 8.7 % (20.0-50.0); MEAN CORPUSCULAR HEMOGLOBIN 31.2 pg (28.0-32.0); MEAN CORPUSCULAR HGB CONC 33.8 g/dL (31.0-37.0); MEAN CORPUSCULAR VOLUME 92.4 fL (81.0-99.0); MEAN PLATELET VOLUME 7.7 fl (7.4-10.4); MONOCYTES % 11.7 % (2.0-8.0); NEUTROPHILS % 77.5 % (40.0-76.0); PLATELET 255 x1000/uL (130-400); RED BLOOD CELL COUNT 2.98 mill/uL (4.2-5.4); RED CELL DISTRIBUTION WIDTH 14.4 % (11.6-14.6); WHITE BLOOD COUNT 4.9 x1000/uL (4.5-11.0)
[2023-12-13 20:21] LABS: POTASSIUM 5.4 mEq/L (3.5-5.1)
[2023-12-13 20:22] LABS: CALCIUM 8.8 mg/dL (8.7-10.4)
[2023-12-13 20:29] LABS: CREATININE 10.6 mg/dL (0.6-1.0)
[2023-12-13] MEDS: MORPHINE SULFATE 4 MG/ML INJ (FOR IV/IM USE) IV STA (20:35)
[2023-12-13] MEDS: ONDANSETRON HCL 4MG/2ML INJ IV STA (20:35)
[2023-12-13] MEDS ORDERED: INSULIN REGULAR (HUMULIN R) 1000UNITS/10ML VIAL IV NR (20:45)
[2023-12-13] MEDS: DEXTROSE 50% WATER 50ML SYRINGE IV NR (20:45)
[2023-12-14] VITALS (12 sets, daily range): BP systolic 122–142; BP diastolic 52–72; PULSE 71–76; RESP 17–18; TEMP 36.44736–37.1408; O2SAT 98
[2023-12-14] MEDS ORDERED: ACETAMINOPHEN 325MG TABLET PO PRN (00:30)
[2023-12-14] MEDS ORDERED: GUAIFENESIN 200MG/10ML SUGAR FREE UDC PO PRN (00:30)
[2023-12-14] MEDS ORDERED: HYDROCODONE/ACETAMINOPHEN 5/325MG TABLET PO PRN (00:30)
[2023-12-14] MEDS ORDERED: HYDRALAZINE 20MG/ML VIAL IV PRN (00:30)
[2023-12-14] MEDS ORDERED: ONDANSETRON HCL 4MG/2ML INJ IV PRN (00:30)
[2023-12-14] MEDS ORDERED: NALOXONE HCL 0.4MG/ML VIAL IV PRN (00:45)
[2023-12-14] MEDS: INSULIN REGULAR (HUMULIN R) 1000UNITS/10ML VIAL IV NR (04:45)
[2023-12-14 05:52] LABS: POTASSIUM 5.6 mEq/L (3.5-5.1)
[2023-12-14 05:53] LABS: CALCIUM 8.4 mg/dL (8.7-10.4)
[2023-12-14] MEDS: SODIUM CHLORIDE 0.9% 3ML FLUSH IVF SCH (06:00)
[2023-12-14] MEDS: OXYCODONE HCL 5MG TABLET PO PRN (07:04)
[2023-12-14 07:07] LABS: CREATININE 10.8 mg/dL (0.6-1.0)
[2023-12-14] MEDS: DOCUSATE SODIUM 100MG CAPSULE PO SCH (09:00)
[2023-12-14 09:22] LABS: HEPATITIS B SURFACE ANTIGEN NEGATIVE (Negative)
[2023-12-14 09:42] LABS: HEPATITIS A AB IGM NEGATIVE (Negative)
[2023-12-14 09:43] LABS: HEPATITIS B CORE AB IGM NEGATIVE (Negative); HEPATITIS C AB NON REACTIVE (Neg) (Negative)
[2023-12-14] MEDS: ACETAMINOPHEN 325MG TABLET PO PRN (13:43)
[2023-12-14] MEDS: MINOXIDIL 2.5MG TABLET PO SCH (15:18)
[2023-12-14] MEDS: LISINOPRIL 5MG TABLET PO SCH (15:18)
[2023-12-14] MEDS: AMLODIPINE 10MG TABLET PO SCH (15:19)
[2023-12-14] MEDS: FAMOTIDINE 20MG TABLET PO SCH (20:56)
[2023-12-14] MEDS: ATORVASTATIN CALCIUM 40MG TABLET PO SCH (20:56)
[2023-12-14] MEDS: ZOLPIDEM TARTRATE 5MG TABLET PO PRN (21:03)
[2023-12-15] VITALS: BP 130/68; PULSE 79; RESP 18; TEMP 36.78072; O2SAT 99
[2023-12-15 04:00] VITALS: BP 134/70; PULSE 79; RESP 18; TEMP 36.78072; O2SAT 100
[2023-12-15 08:00] VITALS: BP 134/68; PULSE 72; RESP 18; TEMP 36.61404; O2SAT 98
[2023-12-15 12:00] VITALS: BP 141/60; PULSE 75; RESP 18; TEMP 36.50292; O2SAT 100
[2023-12-15 16:00] VITALS: BP 120/55; PULSE 73; RESP 18; TEMP 36.72516; O2SAT 100
[2023-12-15 20:00] VITALS: BP 138/64; PULSE 72; RESP 20; TEMP 36.55848; O2SAT 98
[2023-12-16] VITALS (12 sets, daily range): BP systolic 122–156; BP diastolic 52–101; PULSE 70–98; RESP 18–20; TEMP 35.89176–37.00296; O2SAT 94–99
[2023-12-16 05:59] LABS: POTASSIUM 5.7 mEq/L (3.5-5.1)
[2023-12-16 06:01] LABS: CALCIUM 8.1 mg/dL (8.7-10.4)
[2023-12-16 06:14] LABS: CREATININE 10.2 mg/dL (0.6-1.0)
[2023-12-16] MEDS: MAGNESIUM HYDROXIDE 400MG/5ML 30ML UDC PO PRN (06:29)
[2023-12-17] VITALS: BP 108/79; PULSE 82; RESP 20; TEMP 36.89184; O2SAT 97
[2023-12-17 04:00] VITALS: BP 150/89; PULSE 90; RESP 20; TEMP 36.6696; O2SAT 99
[2023-12-17 08:00] VITALS: BP 158/61; PULSE 78; RESP 20; TEMP 37.11408; O2SAT 100
[2023-12-17 12:00] VITALS: BP 127/56; PULSE 73; RESP 18; TEMP 36.89184; O2SAT 18
[2023-12-17] MEDS: HYDROCODONE/ACETAMINOPHEN 10/325MG TABLET PO PRN (14:19)
[2023-12-17 16:00] VITALS: BP 124/54; PULSE 97; RESP 17; TEMP 36.3918; O2SAT 18
[2023-12-17] MEDS: BISACODYL 10MG SUPP PR NR (19:46)
[2023-12-17] MEDS: LACTULOSE 20G/30ML UDC PO SCH (21:18)
[2023-12-17] MEDS: DOCUSATE SODIUM 100MG CAPSULE PO SCH (21:18)
[2023-12-17] MEDS: TRAMADOL 50MG TABLET PO PRN (21:30)
[2023-12-18] VITALS (12 sets, daily range): BP systolic 100–147; BP diastolic 58–92; PULSE 38–93; RESP 18–20; TEMP 36.05844–36.89184; O2SAT 95–98
[2023-12-18 07:41] LABS: HEMATOCRIT. 27.3 % (36.0-48.0); HEMOGLOBIN. 8.9 g/dL (12.0-16.0); MEAN CORPUSCULAR HEMOGLOBIN 30.5 pg (28.0-32.0); MEAN CORPUSCULAR HGB CONC 32.7 g/dL (31.0-37.0); MEAN CORPUSCULAR VOLUME 93.1 fL (81.0-99.0); MEAN PLATELET VOLUME 7.8 fl (7.4-10.4); PLATELET 216 x1000/uL (130-400); RED BLOOD CELL COUNT 2.94 mill/uL (4.2-5.4); RED CELL DISTRIBUTION WIDTH 14.4 % (11.6-14.6); WHITE BLOOD COUNT 3.3 x1000/uL (4.5-11.0)
[2023-12-18 07:52] LABS: POTASSIUM 5.8 mEq/L (3.5-5.1)
[2023-12-18 07:53] LABS: CALCIUM 8.6 mg/dL (8.7-10.4)
[2023-12-18 08:02] LABS: CREATININE 9.6 mg/dL (0.6-1.0)
[2023-12-18 08:27] LABS: DIFFERENTIAL COMMENT 1
[2023-12-18] MEDS ORDERED: HYDRALAZINE 10 MG in SODIUM CHLORIDE 0.9% 49.5 ML IV PRN (15:45)
[2023-12-18 17:08] LABS: PLATELET ESTIMATE NORMAL
[2023-12-18 18:54] LABS: POTASSIUM 4.5 mEq/L (3.5-5.1)
[2023-12-18] MEDS: EPOETIN ALFA-EPBX 4,000 UNIT/ML VIAL SUBCUT SCH (21:39)
[2023-12-19] VITALS: BP 153/86; PULSE 20; RESP 20; TEMP 35.78064; O2SAT 95
[2023-12-19 04:00] VITALS: BP 135/68; PULSE 80; RESP 20; TEMP 37.11408; O2SAT 96
[2023-12-19 06:47] LABS: HEMATOCRIT. 25.2 % (36.0-48.0); HEMOGLOBIN. 8.2 g/dL (12.0-16.0); MEAN CORPUSCULAR HEMOGLOBIN 30.6 pg (28.0-32.0); MEAN CORPUSCULAR HGB CONC 32.5 g/dL (31.0-37.0); MEAN CORPUSCULAR VOLUME 94.3 fL (81.0-99.0); MEAN PLATELET VOLUME 8.1 fl (7.4-10.4); PLATELET 213 x1000/uL (130-400); RED BLOOD CELL COUNT 2.68 mill/uL (4.2-5.4); RED CELL DISTRIBUTION WIDTH 14.3 % (11.6-14.6); WHITE BLOOD COUNT 2.8 x1000/uL (4.5-11.0)
[2023-12-19 07:16] LABS: DIFFERENTIAL COMMENT 1
[2023-12-19 07:20] LABS: CALCIUM 8.5 mg/dL (8.7-10.4)
[2023-12-19 07:33] LABS: CREATININE 7.8 mg/dL (0.6-1.0)
[2023-12-19 08:00] VITALS: BP 135/66; PULSE 65; RESP 18; TEMP 36.50292; O2SAT 100
[2023-12-19 10:59] LABS: PLATELET ESTIMATE NORMAL
[2023-12-19 12:00] VITALS: BP_SYST 102; BP_SYST 153; BP_DIAS 67; BP_DIAS 78; PULSE 72; RESP 18; RESP 19; TEMP 36.61404; O2SAT 98
[2023-12-19 16:00] VITALS: BP 135/65; PULSE 62; RESP 18; TEMP 36.28068; O2SAT 98
[2023-12-19 20:00] VITALS: BP 107/67; PULSE 68; RESP 20; TEMP 37.00296; O2SAT 98
[2023-12-20] VITALS (11 sets, daily range): BP systolic 95–158; BP diastolic 56–83; PULSE 62–83; RESP 17–20; TEMP 35.94732–37.7808; O2SAT 94–99
[2023-12-20 06:41] LABS: CALCIUM 8.3 mg/dL (8.7-10.4); POTASSIUM 5.3 mEq/L (3.5-5.1)
[2023-12-20 06:49] LABS: CREATININE 8.9 mg/dL (0.6-1.0)
[2023-12-20 07:39] LABS: HEMATOCRIT. 25.6 % (36.0-48.0); HEMOGLOBIN. 8.5 g/dL (12.0-16.0); MEAN CORPUSCULAR HEMOGLOBIN 30.7 pg (28.0-32.0); MEAN CORPUSCULAR HGB CONC 33.1 g/dL (31.0-37.0); MEAN CORPUSCULAR VOLUME 92.6 fL (81.0-99.0); MEAN PLATELET VOLUME 8.2 fl (7.4-10.4); PLATELET 200 x1000/uL (130-400); RED BLOOD CELL COUNT 2.76 mill/uL (4.2-5.4); RED CELL DISTRIBUTION WIDTH 14.2 % (11.6-14.6)
[2023-12-20 08:13] LABS: DIFFERENTIAL COMMENT 1
[2023-12-20] MEDS: HYDROCODONE/ACETAMINOPHEN 10/325MG TABLET PO PRN (14:07)
[2023-12-20 16:37] LABS: PLATELET ESTIMATE NORMAL
[2023-12-21] VITALS (7 sets, daily range): BP systolic 134–168; BP diastolic 64–87; PULSE 60–67; RESP 16–20; TEMP 36.3918–36.89184; O2SAT 98–100
[2023-12-21 06:41] LABS: CALCIUM 8.5 mg/dL (8.7-10.4); POTASSIUM 5.2 mEq/L (3.5-5.1)
[2023-12-21 07:01] LABS: CREATININE 8.2 mg/dL (0.6-1.0)
[2023-12-21 08:10] LABS: HEMATOCRIT. 26.4 % (36.0-48.0); HEMOGLOBIN. 8.8 g/dL (12.0-16.0); MEAN CORPUSCULAR HEMOGLOBIN 30.8 pg (28.0-32.0); MEAN CORPUSCULAR HGB CONC 33.1 g/dL (31.0-37.0); MEAN CORPUSCULAR VOLUME 93.2 fL (81.0-99.0); MEAN PLATELET VOLUME 8.4 fl (7.4-10.4); PLATELET 192 x1000/uL (130-400); RED BLOOD CELL COUNT 2.84 mill/uL (4.2-5.4); WHITE BLOOD COUNT 2.9 x1000/uL (4.5-11.0)
[2023-12-21 08:28] LABS: DIFFERENTIAL COMMENT 1
[2023-12-21 17:32] LABS: PLATELET ESTIMATE NORMAL
[2023-12-21] MEDS: DIPHENHYDRAMINE 50MG/ML VIAL IV PRN (22:47)
[2023-12-22] VITALS (15 sets, daily range): BP systolic 130–165; BP diastolic 60–82; PULSE 60–68; RESP 16–19; TEMP 36.33624–37.2252; O2SAT 98–100
[2023-12-22 06:55] LABS: HEMATOCRIT. 26.6 % (36.0-48.0); HEMOGLOBIN. 8.8 g/dL (12.0-16.0); MEAN CORPUSCULAR HEMOGLOBIN 31.1 pg (28.0-32.0); MEAN CORPUSCULAR HGB CONC 33.2 g/dL (31.0-37.0); MEAN CORPUSCULAR VOLUME 93.6 fL (81.0-99.0); MEAN PLATELET VOLUME 8.5 fl (7.4-10.4); PLATELET 194 x1000/uL (130-400); RED BLOOD CELL COUNT 2.84 mill/uL (4.2-5.4); RED CELL DISTRIBUTION WIDTH 14.4 % (11.6-14.6); WHITE BLOOD COUNT 2.4 x1000/uL (4.5-11.0)
[2023-12-22 07:02] LABS: CALCIUM 8.7 mg/dL (8.7-10.4)
[2023-12-22 07:08] LABS: DIFFERENTIAL COMMENT 1
[2023-12-22 07:24] LABS: CREATININE 9.2 mg/dL (0.6-1.0)
[2023-12-22] MEDS: HYDROCODONE/ACETAMINOPHEN 10/325MG TABLET PO PRN (10:02)
[2023-12-22] MEDS: DEXTROSE 50% WATER 50ML SYRINGE IV NR (10:59)
[2023-12-22] MEDS: INSULIN REGULAR (HUMULIN R) 1000UNITS/10ML VIAL IV NR (10:59)
[2023-12-22] MEDS: SODIUM BICARBONATE 8.4% 50MEQ/50ML SYR IV NR (11:00)
[2023-12-22] MEDS: SODIUM ZIRCONIUM CYCLOSILICATE 10GM/PACKET PO NR (13:14)
[2023-12-22 14:56] LABS: PLATELET ESTIMATE NORMAL
[2023-12-22] MEDS: TRAMADOL 50MG TABLET PO PRN (22:17)
[2023-12-23] VITALS: BP 157/76; PULSE 62; RESP 20; TEMP 36.22512; O2SAT 100
[2023-12-23 04:00] VITALS: BP 166/76; PULSE 61; RESP 19; TEMP 36.6696; O2SAT 98
[2023-12-23 06:53] LABS: POTASSIUM 5.2 mEq/L (3.5-5.1)
[2023-12-23 07:05] LABS: HEMATOCRIT. 26.2 % (36.0-48.0); HEMOGLOBIN. 8.5 g/dL (12.0-16.0); MEAN CORPUSCULAR HEMOGLOBIN 30.3 pg (28.0-32.0); MEAN CORPUSCULAR HGB CONC 32.4 g/dL (31.0-37.0); MEAN CORPUSCULAR VOLUME 93.3 fL (81.0-99.0); MEAN PLATELET VOLUME 8.4 fl (7.4-10.4); PLATELET 170 x1000/uL (130-400); RED BLOOD CELL COUNT 2.81 mill/uL (4.2-5.4); RED CELL DISTRIBUTION WIDTH 14.1 % (11.6-14.6); WHITE BLOOD COUNT 2.6 x1000/uL (4.5-11.0)
[2023-12-23 07:14] LABS: CREATININE 7.9 mg/dL (0.6-1.0)
[2023-12-23 07:39] LABS: DIFFERENTIAL COMMENT 1
[2023-12-23 08:00] VITALS: BP 90/60; PULSE 66; RESP 18; TEMP 36.3918; O2SAT 97
[2023-12-23] MEDS: MINOXIDIL 10MG TABLET PO SCH (09:01)
[2023-12-23] MEDS: SODIUM ZIRCONIUM CYCLOSILICATE 10GM/PACKET PO NR (11:24)
[2023-12-23 12:00] VITALS: BP 145/80; PULSE 69; RESP 17; TEMP 36.50292; O2SAT 95
[2023-12-23 16:00] VITALS: BP 145/68; PULSE 65; RESP 18; TEMP 36.50292; O2SAT 95
[2023-12-23 18:07] LABS: PLATELET ESTIMATE NORMAL
[2023-12-23 20:00] VITALS: BP 145/69; PULSE 62; RESP 19; TEMP 35.72508; O2SAT 100
[2023-12-24] VITALS (13 sets, daily range): BP systolic 128–170; BP diastolic 60–81; PULSE 66–79; RESP 18–22; TEMP 36.114–36.78072; O2SAT 96–99
[2023-12-24] MEDS: LISINOPRIL 10MG TABLET PO SCH (08:14)
[2023-12-24] MEDS: CLONIDINE 0.1MG TABLET PO PRN (20:07)
[2023-12-25] VITALS: BP 146/73; PULSE 62; RESP 19; TEMP 36.3918; O2SAT 100
[2023-12-25 04:00] VITALS: BP 146/73; PULSE 63; RESP 18; TEMP 36.22512; O2SAT 98
[2023-12-25 06:58] LABS: HEMATOCRIT. 27.2 % (36.0-48.0); MEAN CORPUSCULAR HEMOGLOBIN 30.5 pg (28.0-32.0); MEAN CORPUSCULAR HGB CONC 33.1 g/dL (31.0-37.0); MEAN CORPUSCULAR VOLUME 92.2 fL (81.0-99.0); MEAN PLATELET VOLUME 8.8 fl (7.4-10.4); PLATELET 159 x1000/uL (130-400); RED BLOOD CELL COUNT 2.95 mill/uL (4.2-5.4); RED CELL DISTRIBUTION WIDTH 14.2 % (11.6-14.6); WHITE BLOOD COUNT 2.6 x1000/uL (4.5-11.0)
[2023-12-25 07:15] LABS: CALCIUM 8.4 mg/dL (8.7-10.4)
[2023-12-25 07:26] LABS: CREATININE 7.5 mg/dL (0.6-1.0)
[2023-12-25 07:36] LABS: DIFFERENTIAL COMMENT 1
[2023-12-25 08:00] VITALS: BP 133/57; PULSE 65; RESP 19; TEMP 36.55848; O2SAT 99
[2023-12-25 12:00] VITALS: BP 129/60; PULSE 69; RESP 18; TEMP 36.3918; O2SAT 99
[2023-12-25 16:00] VITALS: BP 111/54; PULSE 64; RESP 18; TEMP 36.50292; O2SAT 99
[2023-12-25 19:28] LABS: PLATELET ESTIMATE NORMAL
[2023-12-25 20:00] VITALS: BP_SYST 124; BP_SYST 129; BP_DIAS 62; BP_DIAS 69; PULSE 66; RESP 18; TEMP 36.89184; O2SAT 97
[2023-12-26] VITALS (14 sets, daily range): BP systolic 98–160; BP diastolic 63–85; PULSE 61–78; RESP 16–20; TEMP 36.50292–37.05852; O2SAT 96–99
[2023-12-26 07:57] LABS: HEMATOCRIT. 26.5 % (36.0-48.0); HEMOGLOBIN. 8.7 g/dL (12.0-16.0); MEAN CORPUSCULAR HEMOGLOBIN 30.2 pg (28.0-32.0); MEAN CORPUSCULAR HGB CONC 32.8 g/dL (31.0-37.0); MEAN PLATELET VOLUME 8.8 fl (7.4-10.4); PLATELET 151 x1000/uL (130-400); POTASSIUM 5.8 mEq/L (3.5-5.1); RED BLOOD CELL COUNT 2.88 mill/uL (4.2-5.4); RED CELL DISTRIBUTION WIDTH 13.9 % (11.6-14.6); WHITE BLOOD COUNT 2.3 x1000/uL (4.5-11.0)
[2023-12-26 07:59] LABS: CALCIUM 8.5 mg/dL (8.7-10.4)
[2023-12-26 08:10] LABS: DIFFERENTIAL COMMENT 1
[2023-12-26 12:16] LABS: PLATELET ESTIMATE NORMAL
[2023-12-27] VITALS: BP 102/72; PULSE 76; RESP 18; TEMP 37.05852; O2SAT 96
[2023-12-27 04:00] VITALS: BP 145/66; PULSE 80; RESP 18; TEMP 37.05852; O2SAT 97
[2023-12-27 08:00] VITALS: BP 124/55; PULSE 63; RESP 20; TEMP 36.44736; O2SAT 96
[2023-12-27 12:00] VITALS: BP 145/67; PULSE 72; RESP 20; TEMP 36.28068; O2SAT 98
[2023-12-27 16:00] VITALS: BP 136/64; PULSE 70; RESP 18; TEMP 36.55848; O2SAT 98
[2023-12-27 20:00] VITALS: BP 114/73; PULSE 65; RESP 17; TEMP 36.72516; O2SAT 99
[2023-12-28] VITALS (15 sets, daily range): BP systolic 125–161; BP diastolic 62–82; PULSE 62–77; RESP 16–20; TEMP 36.05844–37.05852; O2SAT 95–100
[2023-12-28] MEDS ORDERED: NALOXONE HCL 0.4MG/ML VIAL IV PRN (13:00)
[2023-12-28] MEDS: TRAMADOL 50MG TABLET PO PRN (15:47)
[2023-12-29] VITALS: BP 121/68; PULSE 78; RESP 18; TEMP 36.50292; O2SAT 97
[2023-12-29 04:00] VITALS: BP 130/70; PULSE 80; RESP 18; TEMP 36.50292; O2SAT 96
[2023-12-29 08:00] VITALS: BP 156/68; PULSE 78; RESP 18; TEMP 36.6696; O2SAT 98
[2023-12-29 08:04] LABS: HEMATOCRIT. 26.6 % (36.0-48.0); HEMOGLOBIN. 8.9 g/dL (12.0-16.0); MEAN CORPUSCULAR HEMOGLOBIN 31.1 pg (28.0-32.0); MEAN CORPUSCULAR HGB CONC 33.5 g/dL (31.0-37.0); MEAN CORPUSCULAR VOLUME 92.9 fL (81.0-99.0); MEAN PLATELET VOLUME 9.2 fl (7.4-10.4); PLATELET 152 x1000/uL (130-400); RED BLOOD CELL COUNT 2.86 mill/uL (4.2-5.4); RED CELL DISTRIBUTION WIDTH 13.9 % (11.6-14.6); WHITE BLOOD COUNT 2.2 x1000/uL (4.5-11.0)
[2023-12-29 08:06] LABS: CALCIUM 8.8 mg/dL (8.7-10.4)
[2023-12-29 08:08] LABS: DIFFERENTIAL COMMENT 1
[2023-12-29 08:15] LABS: CREATININE 7.8 mg/dL (0.6-1.0)
[2023-12-29] MEDS ORDERED: SODIUM ZIRCONIUM CYCLOSILICATE 10GM/PACKET PO NR (09:15)
[2023-12-29 11:01] LABS: PLATELET ESTIMATE NORMAL
[2023-12-29 12:00] VITALS: BP 148/70; PULSE 75; RESP 19; TEMP 36.61404; O2SAT 98
[2023-12-29 16:00] VITALS: BP 146/75; PULSE 78; RESP 18; TEMP 36.61404; O2SAT 98
[2023-12-29] MEDS ORDERED: DIPHENHYDRAMINE 50MG CAPSULE PO PRN (17:00)
[2023-12-29] MEDS: DIPHENHYDRAMINE 50MG CAPSULE PO PRN (17:54)
[2023-12-29 20:00] VITALS: BP 128/62; RESP 18; TEMP 36.3918; O2SAT 100
[2023-12-29] MEDS: ZOLPIDEM TARTRATE 5MG TABLET PO PRN (21:22)
[2023-12-30] VITALS (13 sets, daily range): BP systolic 122–170; BP diastolic 60–87; PULSE 65–79; RESP 18–22; TEMP 36.3918–37.00296; O2SAT 97–100
[2023-12-31] VITALS: BP 135/72; PULSE 67; RESP 18; TEMP 36.78072; O2SAT 98
[2023-12-31 04:00] VITALS: BP 144/69; PULSE 71; RESP 18; TEMP 36.55848; O2SAT 94
[2023-12-31 08:00] VITALS: BP 165/80; PULSE 76; RESP 19; TEMP 36.44736; O2SAT 96
[2023-12-31 08:09] LABS: POTASSIUM 4.9 mEq/L (3.5-5.1)
[2023-12-31 08:10] LABS: CALCIUM 8.5 mg/dL (8.7-10.4)
[2023-12-31 08:24] LABS: CREATININE 7.6 mg/dL (0.6-1.0)
[2023-12-31 08:32] LABS: HEPATITIS B SURFACE ANTIGEN NEGATIVE (Negative)
[2023-12-31 08:52] LABS: HEPATITIS A AB IGM NEGATIVE (Negative)
[2023-12-31 08:53] LABS: HEPATITIS B CORE AB IGM NEGATIVE (Negative); HEPATITIS C AB NON REACTIVE (Neg) (Negative)
[2023-12-31 09:06] LABS: HEPATITIS B SURFACE AB > 1000.0 mIU/mL (<10)
[2023-12-31 12:00] VITALS: BP 164/67; PULSE 83; RESP 19; TEMP 36.44736; O2SAT 96
== END 2023-12-31 15:00 | disposition left against medical advice (07) | DRG 425 ==
LOC: ER 17:43 → 5WST 21:26 → 8WST 12-14 17:46 → 6EST 12-17 23:33
PROVIDERS: ADMIT Internal Medicine; ATTEND Internal Medicine
PROC: 5A1D70Z Performance of Urinary Filtration, Intermittent, Less than 6 Hours Per Day (ICD-10-PCS; principal; 2023-12-14)
PROC: 5A1D70Z Performance of Urinary Filtration, Intermittent, Less than 6 Hours Per Day (ICD-10-PCS; 2023-12-16)
PROC: 5A1D70Z Performance of Urinary Filtration, Intermittent, Less than 6 Hours Per Day (ICD-10-PCS; 2023-12-18)
PROC: 5A1D70Z Performance of Urinary Filtration, Intermittent, Less than 6 Hours Per Day (ICD-10-PCS; 2023-12-20)
PROC: 5A1D70Z Performance of Urinary Filtration, Intermittent, Less than 6 Hours Per Day (ICD-10-PCS; 2023-12-22)
PROC: 5A1D70Z Performance of Urinary Filtration, Intermittent, Less than 6 Hours Per Day (ICD-10-PCS; 2023-12-24)
PROC: 5A1D70Z Performance of Urinary Filtration, Intermittent, Less than 6 Hours Per Day (ICD-10-PCS; 2023-12-26)
PROC: 5A1D70Z Performance of Urinary Filtration, Intermittent, Less than 6 Hours Per Day (ICD-10-PCS; 2023-12-28)
PROC: 5A1D70Z Performance of Urinary Filtration, Intermittent, Less than 6 Hours Per Day (ICD-10-PCS; 2023-12-30)
DX: E87.5 Hyperkalemia (principal); G82.50 Quadriplegia, unspecified; I13.2 Hypertensive heart and chronic kidney disease with heart failure and with stage 5 chronic kidney disease, or end stage renal disease; N18.6 End stage renal disease; R18.8 Other ascites; E11.22 Type 2 diabetes mellitus with diabetic chronic kidney disease; D64.9 Anemia, unspecified; E05.90 Thyrotoxicosis, unspecified without thyrotoxic crisis or storm; M48.02 Spinal stenosis, cervical region; F14.10 Cocaine abuse, uncomplicated; Z20.822 Contact with and (suspected) exposure to COVID-19; I50.9 Heart failure, unspecified; Z53.29 Procedure and treatment not carried out because of patient's decision for other reasons; I25.2 Old myocardial infarction; Z79.84 Long term (current) use of oral hypoglycemic drugs; Z59.00 Homelessness unspecified; Z82.49 Family history of ischemic heart disease and other diseases of the circulatory system; Z86.73 Personal history of transient ischemic attack (TIA), and cerebral infarction without residual deficits; Z91.199 Patient's noncompliance with other medical treatment and regimen due to unspecified reason; Z99.2 Dependence on renal dialysis
CPT/HCPCS: 36415; 80048; 82962; 84132; 85025; 86705; 86706; 86709; 87340; 87426; 90935; 97116; 97162; 97166; 97530; 97535; 99285; J0885; J1200; J1815; J2270; J2405; Q0163

== ENCOUNTER 2024-01-03 23:44 | Inpatient (IN) | payer MEDICAID ==
[~2024-01-03] VITALS: Ht 175.3 cm; Wt 85.4 kg
[2024-01-04] VITALS (10 sets, daily range): BP systolic 131–217; BP diastolic 80–111; PULSE 68–74; RESP 15–19; TEMP 36.61404–36.83628; O2SAT 98–99
[2024-01-04] MEDS: MORPHINE SULFATE 4 MG/ML INJ (FOR IV/IM USE) IV STA (01:31)
[2024-01-04] MEDS: ONDANSETRON HCL 4MG/2ML INJ IV STA (01:31)
[2024-01-04 01:38] LABS: POTASSIUM 4.6 mEq/L (3.5-5.1)
[2024-01-04 01:39] LABS: CALCIUM 7.8 mg/dL (8.7-10.4)
[2024-01-04 01:44] LABS: BASOPHILS % 0.6 % (0.0-2.0); DIFFERENTIAL COMMENT 0; EOSINOPHILS % 2.4 % (0.0-5.0); LYMPHOCYTES % 13.8 % (20.0-50.0); MEAN CORPUSCULAR HEMOGLOBIN 30.1 pg (28.0-32.0); MEAN CORPUSCULAR VOLUME 97.2 fL (81.0-99.0); MEAN PLATELET VOLUME 7.8 fl (7.4-10.4); MONOCYTES % 12.3 % (2.0-8.0); NEUTROPHILS % 70.9 % (40.0-76.0); PLATELET 101 x1000/uL (130-400); RED BLOOD CELL COUNT 1.76 mill/uL (4.2-5.4); RED CELL DISTRIBUTION WIDTH 14.8 % (11.6-14.6); WHITE BLOOD COUNT 2.3 x1000/uL (4.5-11.0)
[2024-01-04 02:06] LABS: HCG SCREEN INDETERMINATE
[2024-01-04 02:07] LABS: HEMATOCRIT. 17.1 % (36.0-48.0); HEMOGLOBIN. 5.3 g/dL (12.0-16.0)
[2024-01-04 02:31] LABS: CREATININE 9.9 mg/dL (0.6-1.0)
[2024-01-04 09:45] LABS: HEPATITIS B SURFACE ANTIGEN NEGATIVE (Negative)
[2024-01-04 10:06] LABS: HEPATITIS A AB IGM NEGATIVE (Negative)
[2024-01-04 10:07] LABS: HEPATITIS B CORE AB IGM NEGATIVE (Negative); HEPATITIS C AB NON REACTIVE (Neg) (Negative)
[2024-01-04] MEDS: SEVELAMER CARBONATE 800 MG TABLET PO SCH (13:59)
[2024-01-04] MEDS: FOLIC ACID/VITAMIN B COMP W-C TABLET PO SCH (14:00)
[2024-01-04] MEDS ORDERED: IPRATROPIUM/ALBUTEROL 0.5-3(2.5)MG/3ML NEB NEB PRN (19:15)
[2024-01-04] MEDS: ACETAMINOPHEN 325MG TABLET PO PRN (19:43)
[2024-01-04 21:21] LABS: IRON 29 ug/dL (50-170)
[2024-01-04 21:24] LABS: TOTAL IRON BINDING CAPACITY 209 ug/dl (250-425)
[2024-01-04] MEDS: ZOLPIDEM TARTRATE 5MG TABLET PO PRN (22:44)
[2024-01-04] MEDS: CLONIDINE 0.1MG TABLET PO PRN (22:45)
[2024-01-04] MEDS: HYDRALAZINE 20MG/ML VIAL IV PRN (23:06)
[2024-01-04] MEDS ORDERED: NALOXONE HCL 0.4MG/ML VIAL IV PRN (23:30)
[2024-01-04] MEDS: MORPHINE SULFATE 2 MG/ML INJ (NOT FOR IM USE) IV PRN (23:45)
[2024-01-05] VITALS (7 sets, daily range): BP systolic 130–179; BP diastolic 54–91; PULSE 65–80; RESP 16–20; TEMP 35.94732–36.6696; O2SAT 94–98
[2024-01-05 01:39] LABS: BASOPHILS % 1.1 % (0.0-2.0); EOSINOPHILS % 4.2 % (0.0-5.0); HEMOGLOBIN. 9.3 g/dL (12.0-16.0); LYMPHOCYTES % 18.9 % (20.0-50.0); MEAN CORPUSCULAR HEMOGLOBIN 30.6 pg (28.0-32.0); MEAN CORPUSCULAR HGB CONC 33.3 g/dL (31.0-37.0); MEAN CORPUSCULAR VOLUME 91.9 fL (81.0-99.0); MEAN PLATELET VOLUME 8.8 fl (7.4-10.4); NEUTROPHILS % 58.8 % (40.0-76.0); PLATELET 177 x1000/uL (130-400); RED BLOOD CELL COUNT 3.05 mill/uL (4.2-5.4); RED CELL DISTRIBUTION WIDTH 14.7 % (11.6-14.6); WHITE BLOOD COUNT 3.1 x1000/uL (4.5-11.0)
[2024-01-05 01:41] LABS: DIFFERENTIAL COMMENT 1
[2024-01-05 02:12] LABS: CREATINE KINASE MB FRACTION 3.3 ng/mL (0.5-3.6)
[2024-01-05 02:14] LABS: CREATINE KINASE 260 IU/L (34-145)
[2024-01-05 02:17] LABS: TROPONIN I HIGH SENSITIVITY 79 ng/L (3.0-34)
[2024-01-05 06:24] LABS: HEMATOCRIT. 28.3 % (36.0-48.0); HEMOGLOBIN. 9.2 g/dL (12.0-16.0); MEAN CORPUSCULAR HEMOGLOBIN 30.1 pg (28.0-32.0); MEAN CORPUSCULAR HGB CONC 32.6 g/dL (31.0-37.0); MEAN CORPUSCULAR VOLUME 92.3 fL (81.0-99.0); MEAN PLATELET VOLUME 8.4 fl (7.4-10.4); PLATELET 176 x1000/uL (130-400); RED BLOOD CELL COUNT 3.07 mill/uL (4.2-5.4); RED CELL DISTRIBUTION WIDTH 14.4 % (11.6-14.6); WHITE BLOOD COUNT 3.1 x1000/uL (4.5-11.0)
[2024-01-05 06:30] LABS: CALCIUM 7.8 mg/dL (8.7-10.4)
[2024-01-05 06:35] LABS: CREATINE KINASE MB FRACTION 2.6 ng/mL (0.5-3.6); DIFFERENTIAL COMMENT 1
[2024-01-05 06:42] LABS: CREATININE 9.7 mg/dL (0.6-1.0)
[2024-01-05 10:04] LABS: PLATELET ESTIMATE NORMAL
[2024-01-05] MEDS: ASPIRIN 81MG TABLET PO SCH (11:13)
[2024-01-05] MEDS: ATORVASTATIN CALCIUM 40MG TABLET PO SCH (20:52)
[2024-01-06] VITALS (13 sets, daily range): BP systolic 150–176; BP diastolic 73–93; PULSE 64–78; RESP 16–18; TEMP 36.16956–36.55848; O2SAT 96–100
[2024-01-06 07:22] LABS: HEMATOCRIT 28.8 % (36.0-48.0); HEMOGLOBIN 9.3 g/dL (12.0-16.0); MEAN CORPUSCULAR HEMOGLOBIN 30.2 pg (28.0-32.0); MEAN CORPUSCULAR HGB CONC 32.4 g/dL (31.0-37.0); MEAN CORPUSCULAR VOLUME 93.2 fL (81.0-99.0); PLATELET 179 x1000/uL (130-400); RED BLOOD CELL COUNT 3.09 mill/uL (4.2-5.4); RED CELL DISTRIBUTION WIDTH 14.6 % (11.6-14.6); WHITE BLOOD COUNT 3.2 x1000/uL (4.5-11.0)
[2024-01-06 07:29] LABS: CARBON DIOXIDE 22 mEq/L (21-32); CHLORIDE 106 mEq/L (98-107); POTASSIUM 5.5 mEq/L (3.5-5.1); SODIUM 139 mEq/L (136-145)
[2024-01-06 07:30] LABS: CALCIUM 8.1 mg/dL (8.7-10.4)
[2024-01-06 07:34] LABS: GLUCOSE 76 mg/dL (70-105)
[2024-01-06 07:35] LABS: UREA NITROGEN BLOOD 69 mg/dL (9-23)
[2024-01-06 07:37] LABS: PHOSPHORUS 5.9 mg/dL (2.5-4.9)
[2024-01-06 07:39] LABS: CREATININE 10.4 mg/dL (0.6-1.0)
[2024-01-07] VITALS: BP 143/66; PULSE 82; RESP 19; TEMP 36.3918; O2SAT 96
[2024-01-07 04:00] VITALS: BP 119/81; PULSE 67; RESP 20; TEMP 36.33624; O2SAT 97
[2024-01-07 07:36] LABS: CHLORIDE 103 mEq/L (98-107); HEMATOCRIT 30.6 % (36.0-48.0); HEMOGLOBIN 9.9 g/dL (12.0-16.0); MEAN CORPUSCULAR HEMOGLOBIN 29.8 pg (28.0-32.0); MEAN CORPUSCULAR HGB CONC 32.4 g/dL (31.0-37.0); MEAN CORPUSCULAR VOLUME 91.9 fL (81.0-99.0); PLATELET 169 x1000/uL (130-400); POTASSIUM 4.2 mEq/L (3.5-5.1); RED BLOOD CELL COUNT 3.33 mill/uL (4.2-5.4); RED CELL DISTRIBUTION WIDTH 14.7 % (11.6-14.6); SODIUM 137 mEq/L (136-145); WHITE BLOOD COUNT 2.9 x1000/uL (4.5-11.0)
[2024-01-07 07:37] LABS: CALCIUM 8.3 mg/dL (8.7-10.4); CARBON DIOXIDE 25 mEq/L (21-32)
[2024-01-07 07:42] LABS: GLUCOSE 133 mg/dL (70-105); UREA NITROGEN BLOOD 51 mg/dL (9-23)
[2024-01-07 07:44] LABS: PHOSPHORUS 4.7 mg/dL (2.5-4.9)
[2024-01-07 07:54] LABS: CREATININE 8.4 mg/dL (0.6-1.0)
[2024-01-07 08:00] VITALS: BP 111/56; PULSE 66; RESP 18; TEMP 37.16964; O2SAT 98
[2024-01-07 12:00] VITALS: BP 116/60; PULSE 68; RESP 18; TEMP 36.61404; O2SAT 98
[2024-01-07 16:00] VITALS: BP 181/87; PULSE 69; RESP 17; TEMP 36.16956; O2SAT 98
[2024-01-07 20:00] VITALS: BP 179/75; PULSE 76; RESP 17; TEMP 36.50292; O2SAT 97
[2024-01-07] MEDS: ONDANSETRON HCL 4MG/2ML INJ IV PRN (20:37)
[2024-01-08] VITALS (10 sets, daily range): BP systolic 122–181; BP diastolic 52–86; PULSE 64–79; RESP 18–20; TEMP 36.61404–37.61412; O2SAT 95–100
[2024-01-08] MEDS: AMLODIPINE 5MG TABLET PO SCH (09:22)
[2024-01-08 12:49] LABS: HEMATOCRIT 29.2 % (36.0-48.0); HEMOGLOBIN 9.5 g/dL (12.0-16.0); MEAN CORPUSCULAR HEMOGLOBIN 29.9 pg (28.0-32.0); MEAN CORPUSCULAR HGB CONC 32.6 g/dL (31.0-37.0); MEAN CORPUSCULAR VOLUME 91.7 fL (81.0-99.0); PLATELET 158 x1000/uL (130-400); RED BLOOD CELL COUNT 3.19 mill/uL (4.2-5.4); RED CELL DISTRIBUTION WIDTH 14.2 % (11.6-14.6); WHITE BLOOD COUNT 2.7 x1000/uL (4.5-11.0)
[2024-01-08 12:59] LABS: CHLORIDE 103 mEq/L (98-107); POTASSIUM 4.5 mEq/L (3.5-5.1); SODIUM 137 mEq/L (136-145)
[2024-01-08 13:00] LABS: CALCIUM 8.2 mg/dL (8.7-10.4); CARBON DIOXIDE 27 mEq/L (21-32)
[2024-01-08 13:05] LABS: GLUCOSE 164 mg/dL (70-105); UREA NITROGEN BLOOD 45 mg/dL (9-23)
[2024-01-08 13:47] LABS: CREATININE 7.4 mg/dL (0.6-1.0)
[2024-01-09] VITALS (7 sets, daily range): BP systolic 128–186; BP diastolic 67–89; PULSE 58–80; RESP 18; TEMP 36.22512–36.89184; O2SAT 97–99
[2024-01-09] MEDS: DOCUSATE SODIUM 100MG CAPSULE PO SCH (11:34)
[2024-01-09] MEDS: ZOLPIDEM TARTRATE 5MG TABLET PO PRN (23:11)
[2024-01-10] VITALS (16 sets, daily range): BP systolic 155–196; BP diastolic 72–98; PULSE 59–74; RESP 16–18; TEMP 36.114–36.78072; O2SAT 96–100
[2024-01-10] MEDS ORDERED: NALOXONE HCL 0.4MG/ML VIAL IV PRN (03:15)
[2024-01-10] MEDS: MORPHINE SULFATE 2 MG/ML INJ (NOT FOR IM USE) IV PRN (03:28)
[2024-01-10 06:31] LABS: HEMATOCRIT. 27.5 % (36.0-48.0); MEAN CORPUSCULAR HGB CONC 32.6 g/dL (31.0-37.0); MEAN CORPUSCULAR VOLUME 91.8 fL (81.0-99.0); MEAN PLATELET VOLUME 9.3 fl (7.4-10.4); PLATELET 156 x1000/uL (130-400); RED BLOOD CELL COUNT 2.99 mill/uL (4.2-5.4); RED CELL DISTRIBUTION WIDTH 14.1 % (11.6-14.6); WHITE BLOOD COUNT 3.3 x1000/uL (4.5-11.0)
[2024-01-10 06:53] LABS: CALCIUM 8.3 mg/dL (8.7-10.4); POTASSIUM 5.3 mEq/L (3.5-5.1)
[2024-01-10 07:04] LABS: CREATININE 9.4 mg/dL (0.6-1.0)
[2024-01-10 07:39] LABS: DIFFERENTIAL COMMENT 1
[2024-01-10 18:53] LABS: PLATELET ESTIMATE NORMAL
[2024-01-11] VITALS: BP 169/84; PULSE 73; RESP 18; TEMP 36.22512; O2SAT 99
[2024-01-11 04:00] VITALS: BP 163/58; PULSE 58; RESP 18; TEMP 36.6696; O2SAT 97
[2024-01-11 08:00] VITALS: BP 133/58; PULSE 63; RESP 19; TEMP 36.3918; O2SAT 98
[2024-01-11 12:00] VITALS: BP 162/79; PULSE 62; RESP 20; TEMP 36.61404; O2SAT 99
[2024-01-11] MEDS ORDERED: AMLO10TA80 PO (12:25)
[2024-01-11] MEDS ORDERED: HYDR100T11 PO (12:25)
[2024-01-11] MEDS ORDERED: ATOR20TA MT (12:25)
[2024-01-11] MEDS ORDERED: CALC667C PO (12:25)
[2024-01-11] MEDS ORDERED: ASPI-1406 PO (12:25)
[2024-01-11] MEDS ORDERED: HYDR-4001 MT ×2 (12:25→15:58)
[2024-01-11] MEDS ORDERED: CLOP75TA33 PO (12:25)
[2024-01-11] MEDS ORDERED: GLIP5TAB22 MT (12:25)
[2024-01-11] MEDS: NA PHOS,M-B/NA PHOS,DI-BA ENEMA 118ML PR SCH (13:15)
[2024-01-11] MEDS: LACTULOSE 20G/30ML UDC PO SCH (14:00)
[2024-01-11 15:24] VITALS: BP 133/78; PULSE 68; TEMP 97.5; O2SAT 100
[2024-01-11] MEDS ORDERED: ASPI-1160 PO (15:58)
[2024-01-11] MEDS ORDERED: LIP40 PO (15:58)
[2024-01-11] MEDS ORDERED: FOLI0.8T53 PO (15:58)
[2024-01-11] MEDS ORDERED: DOCU-150 PO (15:58)
[2024-01-11] MEDS ORDERED: SEVE800T8 PO (15:58)
[2024-01-11] MEDS ORDERED: AMLO5TAB88 PO (15:58)
== END 2024-01-11 16:20 | disposition home health service (06) | DRG 347 ==
LOC: ER 23:53 → 5WST 01-04 05:22 → EDBEDREQSVC 01-04 11:35 → 7EST 01-04 22:22
PROVIDERS: ADMIT Internal Medicine; ATTEND Internal Medicine
PROC: 30233N1 Transfusion of Nonautologous Red Blood Cells into Peripheral Vein, Percutaneous Approach (ICD-10-PCS; principal; 2024-01-04)
PROC: 5A1D70Z Performance of Urinary Filtration, Intermittent, Less than 6 Hours Per Day (ICD-10-PCS; 2024-01-04)
PROC: 5A1D70Z Performance of Urinary Filtration, Intermittent, Less than 6 Hours Per Day (ICD-10-PCS; 2024-01-06)
PROC: 5A1D70Z Performance of Urinary Filtration, Intermittent, Less than 6 Hours Per Day (ICD-10-PCS; 2024-01-08)
PROC: 5A1D70Z Performance of Urinary Filtration, Intermittent, Less than 6 Hours Per Day (ICD-10-PCS; 2024-01-10)
DX: S12.690A Other displaced fracture of seventh cervical vertebra, initial encounter for closed fracture (principal); I13.2 Hypertensive heart and chronic kidney disease with heart failure and with stage 5 chronic kidney disease, or end stage renal disease; N18.6 End stage renal disease; E11.22 Type 2 diabetes mellitus with diabetic chronic kidney disease; D64.9 Anemia, unspecified; E05.90 Thyrotoxicosis, unspecified without thyrotoxic crisis or storm; M48.02 Spinal stenosis, cervical region; F14.10 Cocaine abuse, uncomplicated; Z59.00 Homelessness unspecified; S00.03XA Contusion of scalp, initial encounter; I50.9 Heart failure, unspecified; Z86.73 Personal history of transient ischemic attack (TIA), and cerebral infarction without residual deficits; Z79.84 Long term (current) use of oral hypoglycemic drugs; Z99.2 Dependence on renal dialysis; Z79.82 Long term (current) use of aspirin; Z79.899 Other long term (current) drug therapy; Z82.49 Family history of ischemic heart disease and other diseases of the circulatory system; Z91.158 Patient's noncompliance with renal dialysis for other reason; W18.39XA Other fall on same level, initial encounter; Y93.89 Activity, other specified; Y92.89 Other specified places as the place of occurrence of the external cause; Y99.8 Other external cause status
CPT/HCPCS: 36415; 71045; 72131; 80048; 82550; 82553; 83540; 83550; 83735; 84100; 84484; 84703; 85025; 85027; 86705; 86709; 86850; 86900; 86920; 87340; 90935; 93005; 93970; 97162; 99291; J0360; J2270; J2405; P9016